=== PATIENT | male | born 1965 | race Caucasian/White ===

== ENCOUNTER → 2020-08-22 12:10 | Outpatient (CLI) | payer OTHER, SELFPAY ==
[2020-08-22 13:50] LABS: COVID19 -Nasal RAPID Negative (Negative)
== END ==
PROVIDERS: Visit Provider Physician Assistant
DX: Z11.59 Encounter for screening for other viral diseases (principal)
CPT/HCPCS: 87635

== ENCOUNTER 2020-08-25 06:11 | Inpatient (IN) | payer OTHER, SELFPAY ==
[2020-08-18 09:41] VITALS: BMI 38.3
[2020-08-25] VITALS (26 sets, daily range): BP systolic 136–200; BP diastolic 78–140; PULSE 70–98; RESP 12–20; TEMP 36.3–36.8; O2SAT 89–98; BMI 36.1
--- NOTE | 2020-08-25 | DI.RAD.S_ITS ---
PROCEDURE: XR LUMBAR SPINE 2-3V INDICATIONS: L5-S1 TLIF TECHNIQUE: Fluoroscopic images were obtained during an operative procedure and submitted for interpretation following the completion of the procedure. COMPARISON: [facility] [place], CR, XR LUMBAR SPINE FLEXION EXTENSION, 02/09/2019, 11:50. SN[facility] Outside Film, MR, MR LUMBAR SPINE WITHOUT CONTRAST, 03/31/2019, 12:47. FINDINGS: These fluoroscopic images were performed for intraoperative localization. On these images, L5 and S1 postoperative hardware has been placed. Please correlate with intraoperative findings. IMPRESSION: Normal intraoperative examination. Dictated by: Rick Devine M.D. on 08/25/2020 at 11:06 Approved by: Rick Devine M.D. on 08/25/2020 at 11:07
--- NOTE | 2020-08-25 07:06 | PM.PREOP ---
Pre-operative Note COVID-19 COVID-19 status: Negative Result date/Date tested (Pos, Neg/Pending): 08/22/20 Interval Note History & Physical reviewed/Exam performed by Physician: Yes Changes to H&P: No
[2020-08-25] MEDS: LACTATED RINGERS 1,000 ML 42 ML IV ×3 (07:33→11:04)
[2020-08-25] MEDS: MIDAZOLAM 2 MG/2 ML VIAL IV (07:40)
[2020-08-25] MEDS: CEFAZOLIN 2 GM/100 ML FROZ.PIGGY IV ×3 (07:46→23:49)
--- NOTE | 2020-08-25 08:33 | SUR.OPER ---
Prone on spine table, head in foam head support, padded chest and pelvic supports, gel pad at knees, lower legs supported by pillows; nipples, genitalia and toes free of pressure, arms secured on foam padded arm boards at <90 degrees abduction. Tape over blanket at thigh secured to table.
[2020-08-25] MEDS: BUPIVACAINE 0.5% (PF) 4 ML, MORPHINE-PF 4 MG, BUTORPHANOL 1 MG, fentaNYL 100 MCG INJ (08:44)
[2020-08-25] MEDS: VANCOMYCIN 1,000 MG VIAL 1000 MG TOP (08:45)
[2020-08-25] MEDS: THROMBIN (RECOMBINANT) 5,000 UNIT VIAL 5000 UNIT TOP (08:45)
[2020-08-25] MEDS: SODIUM CHLORIDE 0.9% 1,000 ML, GENTAMICIN 80 MG IRR ×2 (08:45→08:46)
--- NOTE | 2020-08-25 11:34 | PM.OP.1 ---
Operative Date/Time/Diagnoses Date of procedure: 08/25/20 Time of procedure: 11:34 Pre-op diagnosis: Lumbar stenosis with radiculopathy Lumbar disc herniation Post-op diagnosis: same Procedure & Clinicians Procedure: L4-5 laminectomy and diskectomy L5-S1 laminectomy L5-S1 TLIF (posterior/posterior interbody fusion) with cage L5-S1 screws Iliac crest bone graft aspirate Use of microscope Placement of epidural catheter Same procedure as scheduled: Yes Indications: [age] year old male with intractable pain from stenosis. They had failed conservative management and requested operative intervention. Risks and benefits of surgery were discussed and appropriate consents were obtained. Surgeon: Travis Atkinson Supervisor Roller Shop: Bernice Padgett Anesthesia Type: General Operative Notes Findings: None Closure Type: primary Specimen(s): none sent Prosthetic devices, grafts, tissues, transplants, or devices: NuVasive MAS Reline screws Globus Rise cage Applied: catheter Estimated Blood Loss (mL): 100 Procedure in detail: The patient was brought to the operating room and intubated on the table. A time-out was performed. They were then rolled over to the well-padded Td table in the prone position. Preoperative antibiotics were given. The back was prepped and draped in the standard sterile fashion. Using fluoroscopy, a 4 cm longitudinal incision was made to the a marked left of the midline. We used Bovie to come down to and split the lumbodorsal fascia. Using fluoroscopy and monitoring, we then percutaneously placed Jamshidi needles down the pedicles of L5 and S1 on the left side. These were changed out to guidewires and then we tapped and then placed the NuVasive MAS Reline screw shanks. We then opened up the retractors and used Bovie to clear up the posterolateral gutter as well as medially along the lamina to the spinous processes. A bur was used to decorticate the transverse process of L5 and the sacral ala. We brought in the microscope. Using a combination of bur and Kerrison rongeurs, a laminectomy was performed from the left side. We cleared over past the midline and carefully depressed the dura until we were able to decompress the opposite side. We cleared out the neural foramen to free up the exiting L5 nerve root. This required a complete facetectomy as well as undermining the facet of L4-5 to be able to finally free this up. This completed the laminectomy at L5-S1. This was separate and distinct from the TLIF approach as we were decompressing the canal and the nerves, freeing the L5 and S1 nerves. We then began the TLIF prep. We carefully cleaned up the remainder of the foramen until we could easily retract the exiting root as well as clearing medially below the dura and expose the disc space. The disc was prepped with bipolar and then an annulotomy was performed. We performed a diskectomy using a combination of paddles, dinah, pituitaries, and curettes. We distracted the disc using a paddle and locked the retractor in an open position. We then filled the disc space with Osteocel bone graft. We then placed the globus rise cage under fluoroscopy and then filled this in with more bone graft. The distraction on the retractor was released to compress down. This completed the posterior interbody fusion portion of the TLIF at L5-S1. The wound was irrigated. We then moved the retractor up to the L4-5 level and cleared off the lamina. Again we performed the left-sided laminectomy at L4-5. We carefully depressed the dura and reach across to the opposite side to completely open up the spinal canal. We had undermined the facets to clear out the neural foramen and the L4 root. We carefully retracted the dura medially and performed an annulotomy. Part of this disc was calcified and we had to use a Kerrison rongeur to remove the posterior wall. In the end we could use the ball probe to confirm the canal and foramen were wide open. The wound was irrigated. An epidural catheter was then prepped with 4 mL of 0.5% Marcaine, 1 mg Stadol, 4 mg Duramorph, and 100 mcg of fentanyl and placed in the spinal canal by carefully depressing the dura and advancing it 6 cm cephalad under the remaining lamina without resistance. The fascia was closed. We then injected the epidural and then pulled out without any resistance and oversewed the fascia. We then went over to the right side. Using fluoroscopy, a 4 cm incision was made on the right. We used Bovie split the fascia. We then percutaneously placed Jamshidi needles down the right pedicles of L5 and S1 using fluoroscopy and neural monitoring. These were changed out over guidewires and tapped and the screws were placed. We placed our gio and locked it down. The wound was irrigated. The fascia was closed. Vancomycin powder was placed in the wounds. The superficial and skin were closed. A sterile dressing was placed. The patient was then rolled over extubated and brought to recovery room without complications. Complications: none Post-operative Condition: stable Disposition: PACU Plan for aftercare: Admit into the hospital. Anticipate 2 days. Up with physical therapy.
[2020-08-25] MEDS: fentaNYL 100 MCG/2 ML INJ IV (11:58)
[2020-08-25] MEDS: OXYCODONE/ACETAMINOPHEN 5/325 TABLET 1 TAB PO (12:20)
[2020-08-25] MEDS: LORazepam 2 MG/ML INJ 0.5 MG IV (12:27)
--- NOTE | 2020-08-25 12:48 | PC.NURSE ---
Day shift: Pt not on AC unit at this time.
[2020-08-25] MEDS: LABETALOL 20 MG/4 ML SYRINGE 10 MG IV ×2 (12:50→15:38)
[2020-08-25] MEDS: ACETAMINOPHEN 325 MG TABLET 650 MG PO (13:27)
[2020-08-25] MEDS: NICOTINE 14 PATCH 14 MG TOP (13:28)
[2020-08-25] MEDS: CELECOXIB 200 MG CAPSULE 400 MG PO (13:28)
[2020-08-25] MEDS: LACTATED RINGERS 1,000 ML 125 ML IV (13:29)
[2020-08-25] MEDS: OXYCODONE IR 5 MG TABLET 10 MG PO (13:29)
--- NOTE | 2020-08-25 15:04 | P.CONS_ITS ---
History of Present Illness Consult details Date Patient Seen: 08/25/20 Chief complaint: INPT Reason for consult: Post-op hypertension Requesting provider: Travis Atkinson Narrative: Bryson Pastor is a 55-year-old male with a past medical history significant for hypertension, SULEMAN on CPAP, probable COPD, and lumbar stenosis with radiculopathy who presented for elective L4-S1 laminectomy and L5-S1 fusion. Medicine team was consulted for postoperative hypertension. Patient has had elevated blood pressures ranging from SBP 160s to 200s and DBP 100 to 120s. His current blood pressure is 140/85. He did not receive his losartan today and will plan to give that now then restart losartan 100 mg daily tomorrow. He reports he does not always remember to take his losartan at home and the last time he took it was 2 days ago. He endorses pain of his low back that is controlled and he is comfortable. Continue to optimize pain control. He has had some postoperative pruritus and nausea with 1 episode of vomiting likely due to anesthesia. He denies headache, lightheadedness or dizziness, chest pain, shortness of breath, abdominal pain, fever, chills, dysuria, diarrhea or constipation. Continue postoperative management per primary team. Meds Home Medications and Allergies Home Medications Medication Instructions Recorded Confirmed Type albuterol sulfate 1 inh INHALATION QD-BID PRN 08/15/20 08/25/20 History fluticasone propionate [Flovent 1 puff INHALATION DAILY 08/15/20 08/25/20 History HFA] losartan 100 mg PO DAILY 08/15/20 08/25/20 History Allergies Allergy/AdvReac Type Severity Reaction Status Date / Time aspirin AdvReac Gastrointestinal Verified 08/25/20 06:37 Upset Review of Systems Review of Systems Narrative: A 10 system comprehensive review of systems was conducted with the patient and found to be negative except as above in the History of Present Illness. Exam Vital Signs (past 8 hours): - 08/25/20 11:43 08/25/20 11:52 08/25/20 11:57 Temperature 97.9 F Pulse Rate 98 H 86 88 Respiratory Rate 14 18 18 Blood Pressure 139/103 H 159/112 H 170/108 H Pulse Oximetry 89 L 92 94 08/25/20 12:02 08/25/20 12:07 08/25/20 12:18 Temperature Pulse Rate 82 87 85 Respiratory Rate 18 20 16 Blood Pressure 164/104 H 165/109 H 176/82 H Pulse Oximetry 96 97 97 08/25/20 12:23 08/25/20 12:29 08/25/20 12:37 Temperature Pulse Rate 94 H 84 84 Respiratory Rate 14 12 14 Blood Pressure 200/140 H 178/122 H 178/117 H Pulse Oximetry 98 97 93 08/25/20 12:50 08/25/20 12:52 08/25/20 13:02 Temperature Pulse Rate 81 81 70 Respiratory Rate 14 12 Blood Pressure 178/117 H 164/104 H 147/93 H Pulse Oximetry 91 95 08/25/20 14:11 Temperature Pulse Rate Respiratory Rate Blood Pressure 140/85 Pulse Oximetry Oxygen Delivery Method Nasal Cannula Oxygen Flow Rate 3 Narrative Exam Narrative: General: Middle-aged male sitting in bed and in no acute distress, well- developed, well-nourished, appropriately interactive. HEENT: Normocephalic, atraumatic. External ears without defect. Pupils equal, round, and reactive to light. Anicteric sclerae, moist conjunctivae, and no lid lag. Oropharynx free of erythema and cobble stoning with moist mucosa. Neck: Supple with full range of motion. No lymphadenopathy or thyromegaly. Cardiovascular: Regular rate and rhythm without murmurs, rubs, or gallops appreciated. Pulmonary: Clear to auscultation bilaterally without crackles, wheezes, or rhonc hi. Normal respiratory effort with no use of accessory muscles. Abdomen: Soft, bowel sounds present, nontender, nondistended. No hepatosplenomegaly or masses appreciated. Extremities: No clubbing, cyanosis, or edema. Back: Dressing in place C/D/I. Skin: Normal temperature, turgor, and texture; no rash, ulcers, or subcutaneous nodules appreciated. Neurological: Cranial nerves grossly intact. Psychiatric: Normal mood and affect. Alert and oriented to person, place, and time. Assessment & Plan Assessment & Plan narrative: Bryson Pastor is a 55-year-old male with a past medical history significant for hypertension, SULEMAN on CPAP, probable COPD, and lumbar stenosis with radiculopathy who presented for elective L4-S1 laminectomy and L5-S1 fusion. Medicine team was consulted for postoperative hypertension. Assessment: Postoperative hypertension Plan: Patient has had elevated blood pressures ranging from SBP 160s to 200s and DBP 100 to 120s. His current blood pressure is 140/85. He did not receive his losartan today and will plan to give that now then restart losartan 100 mg daily tomorrow. Ordered labetalol 10 mg every 4 hours as needed for SBP > 180 mmHg or DBP > 110 mmHg with HR > 60 bpm. If additional blood pressure control is needed could consider amlodipine 5-10 mg daily. Continue to optimize pain control. Continue CPAP for SULEMAN while napping or sleeping. Thank you for this most interesting consult.
[2020-08-25] MEDS: LOSARTAN 50 MG TABLET 100 MG PO (15:28)
[2020-08-25] MEDS: ONDANSETRON 4 MG/2 ML INJ IV (15:33)
--- NOTE | 2020-08-25 15:35 | PT-IP ANOTE ---
Received PT orders and reviewed chart. Attempted to initiate evaluation, but pt's BP has been above 180 systolic in the postoperative period. PT checked BP which was 169/114 but pt was too nauseated to participate. Communicated with RN. Will check on pt for eval on 08/26/20.
[2020-08-25] MEDS: diphenhydrAMINE 25 MG TABLET PO (16:04)
[2020-08-25] MEDS: hydrOXYzine pamoate 25 MG CAPSULE PO (17:10)
--- NOTE | 2020-08-25 17:58 | PM.CN ---
History of Present Illness Consult details Date Patient Seen: 08/25/20 Chief complaint: INPT Reason for consult: Postoperative hypertension Requesting provider: Travis Atkinson Narrative: Bryson Pastor 55-year-old Meds Home Medications and Allergies Home Medications Medication Instructions Recorded Confirmed Type albuterol sulfate 1 inh INHALATION QD-BID PRN 08/15/20 08/25/20 History fluticasone propionate [Flovent 1 puff INHALATION DAILY 08/15/20 08/25/20 History HFA] losartan 100 mg PO DAILY 08/15/20 08/25/20 History Allergies Allergy/AdvReac Type Severity Reaction Status Date / Time aspirin AdvReac Gastrointestinal Verified 08/25/20 06:37 Upset Exam Vital Signs (past 8 hours): - 08/25/20 11:43 08/25/20 11:52 08/25/20 11:57 Temperature 97.9 F Pulse Rate 98 H 86 88 Respiratory Rate 14 18 18 Blood Pressure 139/103 H 159/112 H 170/108 H Pulse Oximetry 89 L 92 94 08/25/20 12:02 08/25/20 12:07 08/25/20 12:18 Temperature Pulse Rate 82 87 85 Respiratory Rate 18 20 16 Blood Pressure 164/104 H 165/109 H 176/82 H Pulse Oximetry 96 97 97 08/25/20 12:23 08/25/20 12:29 08/25/20 12:37 Temperature Pulse Rate 94 H 84 84 Respiratory Rate 14 12 14 Blood Pressure 200/140 H 178/122 H 178/117 H Pulse Oximetry 98 97 93 08/25/20 12:50 08/25/20 12:52 08/25/20 13:02 Temperature Pulse Rate 81 81 70 Respiratory Rate 14 12 Blood Pressure 178/117 H 164/104 H 147/93 H Pulse Oximetry 91 95 08/25/20 13:18 08/25/20 13:48 08/25/20 14:11 Temperature 97.8 F Pulse Rate 74 77 Respiratory Rate 16 18 Blood Pressure 140/85 174/98 H 140/85 Pulse Oximetry 91 94 08/25/20 14:18 08/25/20 15:20 08/25/20 15:28 Temperature 97.4 F L 97.6 F Pulse Rate 73 80 81 Respiratory Rate 18 18 Blood Pressure 137/89 140/97 H 140/97 H Pulse Oximetry 94 98 08/25/20 15:38 08/25/20 16:16 08/25/20 16:17 Temperature Pulse Rate 81 73 73 Respiratory Rate Blood Pressure 169/114 H 163/107 H 163/107 H Pulse Oximetry 96 08/25/20 16:20 Temperature 98.2 F Pulse Rate 72 Respiratory Rate 18 Blood Pressure 143/97 H Pulse Oximetry 93 Oxygen Delivery Method Nasal Cannula Oxygen Flow Rate 2
--- NOTE | 2020-08-25 19:20 | PC.NURSE ---
pt DC'd nicotine patch as he thought it was causing some of his side effects around 1800 and states improvement since.
[2020-08-25] MEDS: SENNOSIDES 8.6 MG TABLET 17.2 MG PO (20:13)
[2020-08-25] MEDS: OXYCODONE IR 5 MG TABLET PO (20:13)
[2020-08-25] MEDS: CELECOXIB 200 MG CAPSULE PO (20:13)
[2020-08-25] MEDS: DOCUSATE 100 MG CAPSULE PO (20:13)
[2020-08-25] MEDS: GABAPENTIN 300 MG CAPSULE PO (20:13)
[2020-08-26] VITALS (9 sets, daily range): BP systolic 134–190; BP diastolic 80–132; PULSE 62–95; RESP 12–19; TEMP 36.4–37.2; O2SAT 92–99
[2020-08-26] MEDS: LACTATED RINGERS 1,000 ML 75 ML IV (02:05)
[2020-08-26] MEDS: OXYCODONE IR 5 MG TABLET PO ×3 (05:04→23:55)
[2020-08-26 05:15] LABS: Hematocrit 40.6 % (41-53); Hemoglobin 13.5 g/dL (13.5-17.5)
[2020-08-26 05:21] LABS: Alanine Aminotransferase 31 IU/L (<50); Albumin 3.7 g/dL (3.5-5.0); Albumin Globulin Ratio 1.1 (1.0-2.8); Alkaline Phosphatase 76 U/L (38-126); Aspartate Aminotransferase 67 IU/L (17-59); BUN Creatinine Ratio 18.5 (6-22); Bilirubin Total 0.5 mg/dL (0.2-1.3); Blood Urea Nitrogen 15 mg/dL (9-20); Carbon Dioxide 31 mmol/L (22-32); Chloride 107 mmol/L (98-107); Estimated Glomerular Filt Rate > 60.0 mL/min (>60); Globulin 3.4 g/dL (1.7-4.1); Glucose 118 mg/dL (70-100); HEMOLYSIS < 15 (0-50); Magnesium 2.1 mg/dL (1.6-2.3); Potassium 4.3 mmol/L (3.4-5.1); Sodium 139 mmol/L (137-145); Total Protein 7.1 g/dL (6.3-8.2)
--- NOTE | 2020-08-26 07:42 | PM.PNPO.1 ---
Subjective Subjective Date Patient Seen: 08/26/20 Time Patient Seen: 07:43 Interval history: He is doing well. Pain is about 3/10. He is very happy that his left leg feeling is normal again. Exam Vital Signs (past 8 hours): - 08/26/20 05:10 Temperature 98.4 F Pulse Rate 90 Respiratory Rate 14 Blood Pressure 155/84 H Pulse Oximetry 92 Oxygen Delivery Method Room Air Oxygen Flow Rate 0 Const Orientation: alert and oriented x3 Back/Spine/Pelvis Other: CDI. 5/5 motor both lower extremities Objective Labs Result Diagrams: 08/26/20 04:46 08/26/20 04:46 Labs: Laboratory Results - last 24 hr 08/26/20 08/26/20 04:46 04:46 Hgb 13.5 Hct 40.6 L Sodium 139 Potassium 4.3 Chloride 107 Carbon Dioxide 31 BUN 15 Creatinine 0.81 Estimated GFR > 60.0 BUN/Creatinine Ratio 18.5 Glucose 118 H Calcium 9.0 Magnesium 2.1 Total Bilirubin 0.5 AST 67 H ALT 31 Alkaline Phosphatase 76 Total Protein 7.1 Albumin 3.7 Globulin 3.4 Albumin/Globulin Ratio 1.1 Assessment & Plan Post-op Postoperative Procedures: Procedures Operation Date: 08/25/20 07:45 Actual Procedures Side Surgeon p L4-S1 laminectomy, L5S1 instrumentated fusion w. bone graft Travis Atkinson MD He is doing great. Mobilized with physical therapy. Anticipate discharge home tomorrow.
[2020-08-26] MEDS: OXYCODONE IR 5 MG TABLET 10 MG PO ×2 (09:12→13:26)
[2020-08-26] MEDS: LOSARTAN 50 MG TABLET 100 MG PO (09:41)
[2020-08-26] MEDS: DOCUSATE 100 MG CAPSULE PO ×2 (09:49→20:53)
[2020-08-26] MEDS: CELECOXIB 200 MG CAPSULE PO ×2 (09:49→20:52)
--- NOTE | 2020-08-26 10:01 | PT.IIE ---
Current Diagnoses Spinal stenosis, lumbar region with neurogenic claudication (08/25/20) Strain of muscle, fascia and tendon of lower back, subsequent encounter (08/25/20) Surgery Performed Operation Date: 08/25/20 07:45 Actual Procedures p L4-S1 laminectomy, L5S1 instrumentated fusion w. bone graft - Travis Atkinson MD Surgical History (Last Reviewed 08/25/20 @ 15:43 by Reina Rodriguez DO) History of nasal surgery History of tonsillectomy and adenoidectomy History of vasectomy Hx of arthroscopy of shoulder Hx of hand surgery Hx of tonsillectomy Medical History (Last Reviewed 08/25/20 @ 15:43 by Reina Rodriguez DO) Anxiety Depression Headache, migraine Hemoptysis (~2014) History of ETOH abuse History of substance abuse HTN (hypertension) Panic attacks Psychosis PTSD (post-traumatic stress disorder) Sleep apnea Physical Therapy Inpatient Evaluation/Re-Eval M1 PT/OT-IP Prior Functional Status Start: 08/25/20 14:06 Freq: NEEDED Status: Active Protocol: Document 08/26/20 10:01 AB (Rec: 08/26/20 12:40 AB [id number]) Medical Review Prior Functional Status Medical History Reviewed Yes Communication able to make needs known Mobility and Gait pt stated that he is independent with all mobilities and ambulation without AD Social History Household Members none Living Arrangements House Number of Floors (Floors) Two Floors Number of Stairs To Enter/Railing? stays on main level of the house has 2 platform step to enter the house Home Environment Walk in Shower Home Equipment Straight Cane,Raised Toilet Seat w/Armrests Employment Status Retired Additional Social History Comment has an adjustable bed has access to a FWW M2 PT-IP Current Condition Start: 08/25/20 14:06 Freq: NEEDED Status: Active Protocol: Document 08/26/20 10:01 AB (Rec: 08/26/20 12:40 AB [id number]) Physical Therapy Current Condition Current Condition Evaluation Date 08/26/20 Treatment Diagnosis s/p L5-S1 TLIF; l4-5 lami; difficulty in walking Onset Date 08/25/20 Precautions Lumbar Precautions Log Roll,No Twisting,Limit Bending,Lifting Restriction of 10 lbs,Gait Belt above Incisional Area M3 PT-IP Subjective Start: 08/25/20 14:06 Freq: NEEDED Status: Active Protocol: Document 08/26/20 10:01 AB (Rec: 08/26/20 12:40 AB [id number]) Subjective Physical Therapy Visit Type Type Initial Evaluation Visit Start Time 10:01 Visit Stop Time 10:37 Total Visit Minutes 36 Number of EAR NOSE THROAT PHYSICIAN Visits 0 Physical Therapy Visit Comments Patient Comments pt is agreeable to do PT Therapy Pain Assessment Pain When Pain Assessed At Rest Pain Present Pain Present Pain Reported Location low back Scale Used pain scale not stated Pain Management Techniques Distraction,Modification of Treatment,Re-positioning, Timing of Activity with Medications M4 PT-IP Mobility and Gait Start: 08/25/20 14:06 Freq: NEEDED Status: Active Protocol: Document 08/26/20 10:01 AB (Rec: 08/26/20 12:40 AB [id number]) PT-Bed Mobility Assessment Rolling Type of Rolling Log Rolling Level of Assist Standby Assistance Supine to Sit Supine to Sit Standby Assistance Sit to Supine Sit to Supine Standby Assistance PT-Transfer Assessment Sit to and From Stand Sit to and from Stand Contact Guard Assistance, Minimal Assistance,1 Person Assistance,Use of Upper Extremities Equipment Transfer Assistive Device Gait Belt,Front Wheeled Walker Orthotic/Prosthetic Devices or Brace: No Transfers Transfer Destination Bed,Chair Transfer Technique ambulated using FWW Transfer Ability Level of Assist Contact Guard Assistance,1 Person Assistance,Use of Upper Extremities Comments Mobility Comments pt with OT. completed sit to stand from chair min A. pt instructed to sit back down. educated on sit<>stand techniques and completed sit < >stand again CGA and cues. pt repeated 3 reps. pt can be impulsive and cued for safety. pt ambulated to the toilet using FWW CGA. slight L knee increase flexion noted and cued for steadiness. pt ambulated out of the toilet towars the bed using fWW SBA to CGA. completed supine <> sit log roll SBA and cues. completed 2 sets and cues as pt is impulsive and need reminders for back precautions . pt ambulated back towards the chair using FWW SBA to CGA . positioned on chair. call light and table placed within reach. Gait Assessment Gait Gait Assistance Required: Standby Assistance,Contact Guard Assist,1 Person Assist Distance (Feet) 20 Able to Maintain Weight Bearing Status Yes During Gait Assistive Devices Assistive Device Gait Belt,Front Wheeled Walker Orthotic/Prosthetic Devices or Brace: No Gait Deviations General Gait Pattern Antalgic,Decreased Stride Length,Decreased Feet Clearance,Step-to Gait Factors Limiting Gait Function Factors Limiting Gait Function Decreased Activity Tolerance, Decreased Strength,Difficulty Following Directions,Limited Range of Motion,Pain,Poor Balance,Poor Safety Awareness Comments Gait Comments pls refer to mobility section for details PT-Balance Assessment Sitting Balance and Reactions Static Sitting Balance Ability Good Dynamic Sitting Balance Ability Good Standing Balance and Reactions Static Standing Balance Ability Fair Dynamic Standing Balance Ability Fair Device Used FWW M5 PT-IP Objective Assessments Start: 08/25/20 14:06 Freq: NEEDED Status: Active Protocol: Document 08/26/20 10:01 AB (Rec: 08/26/20 12:40 AB [id number]) Orientation Orientation/Cognition Level of Alertness Alert Orientation Name,Place,Situation Language Function Ability No Deficits Noted Safety Awareness Decreased Safety Awareness Memory Description Short Term Impaired Gross Range of Motion Lower Extremity ROM Assessment Within Functional Limits Strength Comments Strength Comments RLE: 4/5 LLE: 4-/5 Coordination Assessment Gross Coordination Gross Coordination WNL Sensation Assessment Sensation Gross Sensation WNL Muscle Tone Muscle Tone WNL Yes M6 PT-IP Treatment Start: 08/25/20 14:06 Freq: NEEDED Status: Active Protocol: Document 08/26/20 10:01 AB (Rec: 08/26/20 12:40 AB [id number]) Physical Therapy Treatment Education Education Provided Precautions,Safety M7 PT-IP Assessment and Plan Start: 08/25/20 14:06 Freq: NEEDED Status: Active Protocol: Document 08/26/20 10:01 AB (Rec: 08/26/20 12:40 AB [id number]) PT Summary Assessment and Plan Potential Rehabilitation Potential Good Status of Condition at Evaluation Stable Summary Impairments Pain,ROM,Strength,Balance, Coordination,Sensation,Tone, Cognition,Bed Mobility, Transfers,Gait,Activity Tolerance Assessment Summary pt requiring SBA to CGA with mobility and will likely progress during hospital stay. pt plans to go home but will not have assistance at home. will continue to assess progress for safe d/c plan. Goals Bed Mobility Goal Independent Transfer Goal Independent,Front Wheeled Walker Gait Goal Independent,Front Wheel Walker Gait Distance 200 Other Goals improve ambulation using SPC 200 ft SBA up/down 2 platform steps using FWW SBA Days to Meet Goals 5 Frequency of Treatment Frequency Of Treatment Twice a Day Treatment Plan Physical Therapy Treatment Plan Bed Mobility Training,Transfer Training,Gait Training, Therapeutic Exercise,Balance Retraining,Post Op Education, Discharge Planning,Hot or Cold Pack,Neuromuscular Re-ed, Coordination Retraining,Manual Therapy Other Recommendations and Next Treatment log roll bed mobility, Focus ambulation, stair climbing Recommendations To Nursing Amount of Assist Needed 1 Person Assist Discharge Recommendations PT Discharge Recommendations Home with Assistance Transportation Needs at Discharge Private Vehicle
--- NOTE | 2020-08-26 10:12 | OT.IP.EVAL ---
Current Diagnoses Spinal stenosis, lumbar region with neurogenic claudication (08/25/20) Strain of muscle, fascia and tendon of lower back, subsequent encounter (08/25/20) Surgery Performed Operation Date: 08/25/20 07:45 Actual Procedures p L4-S1 laminectomy, L5S1 instrumentated fusion w. bone graft - Travis Atkinson MD Past Medical History (Last Reviewed 08/25/20 @ 15:43 by Reina Rodriguez DO) Anxiety Depression Headache, migraine Hemoptysis (~2014) History of ETOH abuse History of substance abuse HTN (hypertension) Panic attacks Psychosis PTSD (post-traumatic stress disorder) Sleep apnea Surgical History (Last Reviewed 08/25/20 @ 15:43 by Reina Rodriguez DO) History of nasal surgery History of tonsillectomy and adenoidectomy History of vasectomy Hx of arthroscopy of shoulder Hx of hand surgery Hx of tonsillectomy Occupational Therapy Inpatient Evaluation/Re-Eval M1 PT/OT-IP Prior Functional Status Start: 08/25/20 14:06 Freq: NEEDED Status: Active Protocol: Document 08/26/20 14:26 CGR (Rec: 08/26/20 14:44 CGR [id number]) Medical Review Prior Functional Status Medical History Reviewed Yes Communication able to make needs known Mobility and Gait pt stated that he is independent with all mobilities and ambulation without AD Activities of Daily Living and IADL's Pt was IND in all ADLs prior to admit. Social History Household Members none Living Arrangements House Number of Floors (Floors) Two Floors Number of Stairs To Enter/Railing? stays on main level of the house has 2 platform step to enter the house Home Environment Standard Height Toilet,Walk in Shower Home Equipment Straight Cane,Raised Toilet Seat Without Armrests,Legal Research Analyst Employment Status Retired Additional Social History Comment has an adjustable bed has access to a FWW M2 OT-IP Current Condition Start: 08/26/20 14:26 Freq: Status: Active Protocol: Document 08/26/20 14:26 CGR (Rec: 08/26/20 14:44 CGR [id number]) Occupational Therapy Current Condition Current Condition Evaluation Date 08/26/20 Treatment Diagnosis L4-S1 with bone graft Diagnosis Onset Date 08/25/20 Post Operative Precautions Lumbar Precautions Log Roll,No Twisting,Limit Bending,Lifting Restriction of 10 lbs,Gait Belt above Incisional Area M3 OT- IP Subjective and Pain Start: 08/26/20 14:26 Freq: Status: Active Protocol: Document 08/26/20 14:26 CGR (Rec: 08/26/20 14:44 CGR [id number]) OT- Subjective Occupational Therapy Visit Type Type Initial Evaluation Visit Start Time 09:10 Visit Stop Time 09:32 Total Visit Minutes 40 Notes 2 part session, first 0910- 0932, second 1267-2517 for a total of 40 minutes. P.T. entered room at end of second session. OT Pain Assessment Pain When Pain Assessed At Rest Pain Present Pain Present Pain Reported Location low back Intensity 4 Scale Used Numeric (0 - 10) Management Techniques Distraction,Modification of Treatment,Re-positioning, Timing of Activity with Medications M4 OT- IP ADL's Start: 08/26/20 14:26 Freq: Status: Active Protocol: Document 08/26/20 14:26 CGR (Rec: 08/26/20 14:44 CGR [id number]) OT [id number]-Byowtzo Comments OT Self-Feeding Comments Not meal time but pt took pills without difficulty with water at start of session. OT ADL-Grooming Comments OT Grooming Comments Not performed OT ADL-Oral Care Comments Oral Care Comments Not performed OT ADL-Dressing General Eval Upper Body Dressing Ability Standby Assistance Lower Body Dressing Ability Standby Assistance Areas Needing Assistance Socks Comments OT Dressing Comments seated EOB, pt was able to bring foot to knee OT ADL-Toileting General Evaluation Toileting Ability Standby Assistance Comments OT Toileting Comments simulated ability d/t schultz present OT ADL-Bathing Comments OT Bathing Comments not performed M5 OT- IP IADL's Start: 08/26/20 14:26 Freq: Status: Active Protocol: Document 08/26/20 14:26 CGR (Rec: 08/26/20 14:44 CGR [id number]) OT-Instrumental Activities of Daily Living Deficits IADL Deficits Identified No Deficits Home Safety Awareness Awareness of Need for Assistance at Home Good Awareness Ability to Problem Solve Emergency Able to Problem Solve Situations Medication Management Medication Management No Deficits Identified Money Management Money Management No Deficits Identified Meal Preparation Meal Preparation No Deficits Identified Medical Insurance Claims Specialist Medical Insurance Claims Specialist No Deficits Identified Driving Driving Comments Pt does not drive at baseline. Pt's daughter drives pt as needed. M6 OT- IP Functional Cognition Start: 08/26/20 14:26 Freq: Status: Active Protocol: Document 08/26/20 14:26 CGR (Rec: 08/26/20 14:44 CGR [id number]) Cognitive Factors Limiting Selfcare Function Cognitive Ability Level of Alertness Alert Patient Orientation Name,Age,Birthday,Month,Date, Year,Day of Week,Place, Situation Attention Span Ability Capable of Focused Attention, Capable of Sustained Attention Ability to Follow Commands Able to Follow Multi-Step Commands Memory Description No Deficits Noted Safety Awareness No Deficits Noted Problem Solving Ability No deficits Noted OT- Vision and Hearing OT- Hearing Assessment OT- Hearing Assessment WFL OT- Vision Assessment Visual Acuity WFL,Glasses For Reading Visual Attentiveness WFL Occular Pursuits WFL Visual Convergence WFL M7 OT- IP Mobility and Balance Start: 08/26/20 14:26 Freq: Status: Active Protocol: Document 08/26/20 14:26 CGR (Rec: 08/26/20 14:44 CGR [id number]) OT- Bed Mobility Assessment Rolling Type of Rolling Roll to Right Level of Assistance Minimal Assistance Supine to Sit Supine to Sit Assist Standby Assistance Scooting Scooting to Edge of Bed Standby Assistance OT-Transfer Assessment Sit to and From Stand Sit to and from Stand Minimal Assistance Transfers Transfer Ability Minimal Assistance Technique Transfer Destination Bed,Chair,Toilet Transfer Technique Stand Step Pivot Devices Transfer Assistive Devices Gait Belt,Front Wheeled Walker Comments Mobility Comments Pt practiced sit to stand multiple times for safe transfers. OT- Gait Assessment Gait Gait Assistance Required: Minimum Assistance Assistive Devices Assistive Device Gait Belt,Front Wheeled Walker OT- Balance Assessment Sitting Balance and Reactions Static Sitting Balance Ability Normal Dynamic Sitting Balance Ability Good M8 OT- IP Objective Assessments Start: 08/26/20 14:26 Freq: Status: Active Protocol: Document 08/26/20 14:26 CGR (Rec: 08/26/20 14:44 CGR [id number]) OT Gross Range of Motion Upper Extremity Range of Motion Assessment Within Functional Limits OT Strength Upper Extremity Strength Assessment Within Functional Limits Comments Strength Comments grossly 4/5 OT- Coordination Assessment Upper Extremity Finger to Nose Test Within Functional Limits Finger Tapping Test Within Functional Limits OT-Muscle Tone Assessment Muscle Tone WNL Yes OT Sensation Assessment Edema Edema Absent M9 OT- IP Assessment and Plan Start: 08/26/20 14:26 Freq: Status: Active Protocol: Document 08/26/20 14:26 CGR (Rec: 08/26/20 14:44 CGR [id number]) OT Summary Assessment and Plan Potential Rehabilitation Potential Good Analytic Complexity at Evaluation Low Summary OT Impairments Pain,Balance,Functional Mobility,Dressing,Toileting, Bathing,Toilet Transfers, Shower Transfers,Activity Tolerance Progress Towards Goals Progressing Toward Goals Assessment Summary Pt presents as a low complexity evaluation s/p admit for L4-S1lami. Pt is progressing well and is likely to benefit from continued Ot services prior to discharge home. Goals Grooming Goal Independent Dressing Goal Independent Toileting Goal Independent Bathing Goal Independent Toilet Transfer Goal Independent Shower Transfer Goal Independent Days to Meet Goals 2 Frequency of Treatment Frequency Of Treatment Once a Day Treatment Plan OT Treatment Plan ADL Training,Functional Mobility,Patient/Family Education,Discharge Planning Other Treatment Recommendations and Next shower and LB dressing Treatment Focus training if needed Discharge Recommendations OT Discharge Recommendations Home Home Equipment Needs FWW, shower chair. Transportation Needs at Discharge Private Vehicle
[2020-08-26] MEDS: FLUTICASONE 220MCG HFA 120 PUFF INH (13:25)
--- NOTE | 2020-08-26 13:49 | PT.IPTN ---
Current Diagnoses Spinal stenosis, lumbar region with neurogenic claudication (08/25/20) Strain of muscle, fascia and tendon of lower back, subsequent encounter (08/25/20) Surgery Performed Operation Date: 08/25/20 07:45 Actual Procedures p L4-S1 laminectomy, L5S1 instrumentated fusion w. bone graft - Travis Atkinson MD Physical Therapy Treatment Note M2 PT-IP Current Condition Start: 08/25/20 14:06 Freq: NEEDED Status: Active Protocol: Document 08/26/20 10:01 AB (Rec: 08/26/20 12:40 AB [id number]) Physical Therapy Current Condition Current Condition Evaluation Date 08/26/20 Treatment Diagnosis s/p L5-S1 TLIF; l4-5 lami; difficulty in walking Onset Date 08/25/20 Precautions Lumbar Precautions Log Roll,No Twisting,Limit Bending,Lifting Restriction of 10 lbs,Gait Belt above Incisional Area M3 PT-IP Subjective Start: 08/25/20 14:06 Freq: NEEDED Status: Active Protocol: Document 08/26/20 13:49 AB (Rec: 08/26/20 15:09 AB [id number]) Subjective Physical Therapy Visit Type Type Treatment Note Visit Start Time 13:49 Visit Stop Time 14:39 Total Visit Minutes 50 Number of SUGAR BOILER Visits 0 Physical Therapy Visit Comments Patient Comments pt is agreeable to do PT Therapy Pain Assessment Pain When Pain Assessed At Rest Pain Present Pain Present Pain Reported Location low back Intensity 3 Scale Used Numeric (0 - 10) Pain Management Techniques Timing of Activity with Medications M4 PT-IP Mobility and Gait Start: 08/25/20 14:06 Freq: NEEDED Status: Active Protocol: Document 08/26/20 13:49 AB (Rec: 08/26/20 15:09 AB [id number]) PT-Bed Mobility Assessment Rolling Type of Rolling Log Rolling Level of Assist Standby Assistance Supine to Sit Supine to Sit Standby Assistance Sit to Supine Sit to Supine Standby Assistance Scooting Scooting to Edge of Bed Standby Assistance PT-Transfer Assessment Sit to and From Stand Sit to and from Stand Standby Assistance,Contact Guard Assistance,1 Person Assistance,Use of Upper Extremities Equipment Transfer Assistive Device Gait Belt,Front Wheeled Walker Orthotic/Prosthetic Devices or Brace: No Transfers Transfer Destination Bed,Chair Transfer Technique ambulated using FWW Transfer Ability Level of Assist Standby Assistance,Contact Guard Assistance,1 Person Assistance,Use of Upper Extremities Comments Mobility Comments reviewed back precautions and pt was able to recall. completed sit <>stand x 4 reps with cues. pt is impulsive and requires cues for techniques and safety. ambulated towards the bed. completed supine<>sit x 3 sets log roll SBA and cues. pt continues to be impulsive and requires cues to slow down to maintain back precautions. ambulated in the hallway ~ 100 ft using FWW SBA to occasional CGA for safety. continues to have increase L knee flexion during late stance. educated pt on how to do stairs using FWW and completed up/down platform step using FWW CGA to min A. pt completed 3 sets. pt ambulated back to his room using FWW SBA and requested to stay up on chair. positioned on chair. call light and table placed within reach. Gait Assessment Gait Gait Assistance Required: Standby Assistance,Contact Guard Assist,1 Person Assist Distance (Feet) 100 Able to Maintain Weight Bearing Status Yes During Gait Assistive Devices Assistive Device Gait Belt,Front Wheeled Walker Orthotic/Prosthetic Devices or Brace: No Gait Deviations General Gait Pattern Antalgic,Decreased Stride Length,Decreased Feet Clearance Factors Limiting Gait Function Factors Limiting Gait Function Decreased Activity Tolerance, Decreased Strength,Limited Range of Motion,Pain,Poor Balance,Poor Safety Awareness Comments Gait Comments pls refer to mobility section for details Stair Climbing Assessment Evaluation Level of Assist On Stairs Contact Guard Assistance, Minimal Assistance,1 Person Assistance Devices Stair Climbing Assistive Devices Front Wheel Walker Technique/Endurance Stair Climbing Direction Ascend and Descend Stair Climbing Technique Step to Step Number of Steps Climbed 1 Stair Climbing Set # Repetitions (reps) 3 Comments Stair Climbing Comments completed up/down platform step using FWW requiring CGA for ascending but required min A for descending steps. cues given for techniques and safety. M5 PT-IP Objective Assessments Start: 08/25/20 14:06 Freq: NEEDED Status: Active Protocol: Document 08/26/20 10:01 AB (Rec: 08/26/20 12:40 AB [id number]) Orientation Orientation/Cognition Level of Alertness Alert Orientation Name,Place,Situation Language Function Ability No Deficits Noted Safety Awareness Decreased Safety Awareness Memory Description Short Term Impaired Gross Range of Motion Lower Extremity ROM Assessment Within Functional Limits Strength Comments Strength Comments RLE: 4/5 LLE: 4-/5 Coordination Assessment Gross Coordination Gross Coordination WNL Sensation Assessment Sensation Gross Sensation WNL Muscle Tone Muscle Tone WNL Yes M6 PT-IP Treatment Start: 08/25/20 14:06 Freq: NEEDED Status: Active Protocol: Document 08/26/20 13:49 AB (Rec: 08/26/20 15:09 AB [id number]) Physical Therapy Treatment Education Education Provided Precautions,Weight Bearing Status,Post-Op Packet,Safety M7 PT-IP Assessment and Plan Start: 08/25/20 14:06 Freq: NEEDED Status: Active Protocol: Document 08/26/20 13:49 AB (Rec: 08/26/20 15:09 AB [id number]) PT Summary Assessment and Plan Potential Rehabilitation Potential Good Summary Impairments Pain,ROM,Strength,Balance, Coordination,Sensation,Tone, Cognition,Bed Mobility, Transfers,Gait,Activity Tolerance Progress Towards Goals Progressing Toward Goals Assessment Summary Pt requiring SBA with mobility using FWW, required CGA to min A up/down step. pt will likely progress during hospital stay. pt plans to go home but will not have consistent assistance at home but stated that his daughter may assist and also a neighbor can assist him if needed. will continue to assess progress. Goals Bed Mobility Goal Independent Transfer Goal Independent,Front Wheeled Walker Gait Goal Independent,Front Wheel Walker Gait Distance 200 Other Goals improve ambulation using SPC 200 ft SBA up/down 2 platform steps using FWW SBA Days to Meet Goals 5 Frequency of Treatment Frequency Of Treatment Twice a Day Treatment Plan Physical Therapy Treatment Plan Bed Mobility Training,Transfer Training,Gait Training, Therapeutic Exercise,Balance Retraining,Post Op Education, Discharge Planning,Hot or Cold Pack,Neuromuscular Re-ed, Coordination Retraining,Manual Therapy Other Recommendations and Next Treatment log roll bed mobility, Focus ambulation, stair climbing Recommendations To Nursing Amount of Assist Needed 1 Person Assist Discharge Recommendations PT Discharge Recommendations Home with Assistance Transportation Needs at Discharge Private Vehicle
--- NOTE | 2020-08-26 14:38 | CM.DANOTE ---
Addendum entered by Rena Blue LPN 08/26/20 14:57: PCP: Dr. Juan Shah: [facility] Addendum entered by Rena Blue LPN 08/26/20 14:52: Met with pt as planned. Introduced self and role. Pt says he anticipates a d/c tomorrow and plans for his daughter oRsa, who works in [place], to pick him up when she gets off work at 1200. He does live alone but has a friend who will be staying for a bit as well as a house-mate who he can call on if need be for help. He expresses no concerns re his d/c to home plan for tomorrow. Original Note: Discharge Planning/Care Management DCP: assessment: case received, EMR reviewed. Discussed in Team Rounds. Pt is a 55 year old male who admitted yesterday for a planned spinal surgery. Payer: L&I Admission status: INPT. Consulting: Hospitalist team: for elevated BP Surgeon: Dr. Atkinson. PT and OT are seeing pt. Dr. Atkinson anticipates pt will be ready for d/c home tomorrow. Will check in with pt now. He does live alone. Unsure of his support system post d/c. CM Discharge Assessment Start: 08/26/20 14:37 Freq: Status: Active Protocol: Document 08/26/20 14:37 ITV (Rec: 08/26/20 14:38 ITV [id number]) Discharge Planning Assessment Advance Directives? No History Provided By Medical Record Prior Living Arrangements House Household Members none Independent with ADL's Yes Is patient alert and oriented? Yes Review Status In Process Pre-Anesthesia Assessment Start: 08/15/20 12:53 Freq: Status: Active Protocol: Document 08/18/20 09:41 CAB (Rec: 08/15/20 13:08 CAB [id number]) Pre-Anesthesia Assessment Patient Information Reviewed Via Phone Assessment Assessment Completed With Patient,Other H&P Completed Within 30 Days Yes Diagnostic Results BMP/CMP,CBC,EKG Comment Outside labs/EKG scanned, COVID screen @ 08/22/20 Primary Care Provider Roney Seen Specialist in Last 12 Months Yes Specialist Seen Orthopedist Primary Language Nepali Payroll Analyst Required No Height 182.88 cm Weight 128.367 kg Body Mass Index (BMI) 38.3 Hearing Ability Normal Visual Assist None Dentition Type Teeth, Natural Present Hx Anesthesia Reactions No Hx Family Anesthesia Reaction No Hx Malignant Hyperthermia No Hx Blood Transfusions No Anesthesia Review Requested No alcohol intake former Alcohol Intake Frequency Other: Hx of ETOH abuse Smoking Status Former smoker how long ago did patient quit smoking Quit approx 2 months ago Substance Use Type former substance user Pain Present Pain Reported Musculoskeletal Symptoms Abnormal Gait,Back Pain,Joint Pain,Numbness,Radiating Pain into Limb,Tingling History of Falling (Recent or History of Yes ) Patient is completely paralyzed or No completely immobile Mental Status Oriented to own ability Is patient on oxygen? No Does patient have HASSAN/SOB No Hx Sleep Apnea Yes CPAP/BIPAP use prescribed and used routinely Will Bring CPAP/BIPAP DOS Yes Currently Taking a Beta [place] No Can You Climb a Flight of Stairs Without No SOB Hx Chest Pain No Hx SOB No Hx Syncope or Dizziness No Anti-Coagulant Therapy No Has a Cardio Tech No Cardiac Testing No Hx Pacemaker/ICD No Pacemaker Rep Required? 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 Marital Status Lives With none Prior Living Arrangements House Number of Floors (Floors) Two Floors Does the Patient Have Assistance After No Surgery Patient Discharge Plan Description Return Home Comment Pt not advised on length of stay per surgeon Feels Safe in Current Environment Yes Been Physically Hurt or Threatened By a No Person in Current Environment Do you have thoughts of harming yourself None or others? Are you currently considering suicide? No Do you have a plan to hurt yourself or No Plan others? Do You Have Any Spiritual Beliefs That No May Affect Your HC Choices? Do You Have Any Cultural Practices That No May Affect Your HC Choices? Comment Roman Catholic Who Can We Speak to About Patient's Care Family, friends Identifying Code for Release of Patient Declines to issue Information Health Care Proxy/Next of Kin Rosa (Daughter) Health Care Proxy Emergency Contact Name Rosa (Daughter) Emergency Contact PAC Instructions Bring CPAP/BIPAP,Durable medical equipment,Medications to take/avoid,Nasal antibiotic ,No ETOH/petroleum product on skin DOS,NPO,Pre-surgical wash ,Sturdy shoes/comfortable clothes,Do not bring valuables and remove jewelry
[2020-08-26] MEDS: hydrOXYzine pamoate 25 MG CAPSULE PO ×2 (16:09)
[2020-08-26] MEDS: ACETAMINOPHEN 325 MG TABLET 650 MG PO (16:09)
[2020-08-26] MEDS: SENNOSIDES 8.6 MG TABLET 17.2 MG PO (20:52)
[2020-08-26] MEDS: GABAPENTIN 300 MG CAPSULE PO (20:53)
[2020-08-27] MEDS: OXYCODONE IR 5 MG TABLET PO ×2 (00:20→13:39)
[2020-08-27] MEDS: hydrOXYzine pamoate 25 MG CAPSULE PO ×3 (00:20→12:37)
--- NOTE | 2020-08-27 02:29 | PC.NURSE ---
Patient has been uncooperative this shift. Patient had been sitting on side of bed and had c/o back/leg/buttock spasms. After returning from bathroom, I asked patient how were the spasms doing? He replied no it is better now. Asked him to rate his pain and he said 4/10. took prescribed percolone 5mg po from pyxsis for this pain rating. Patient takes med, and few miniutes later starts screaming that no one told him about the pain ratings, and that he was being undermedicated all along, Told patient that I was his nurse last night also and that he had been medicated by me during the shift. took about 10 minutes to talk patient down, explained he would be medicated for his now report of higher pain. Given a vistaril and another 5mg percolone. hour later screaming and walking around room again c/o pain. Told him I would look and see when he could next have pain meds. Cursed and said he could go look at the computer himself expletive, expletive.... Too soon for vistaril or percolone. Removed benadryl and tylenol for patient to tide over until next available due dose of percolone. Patient had put himself back to bed with knees bent, rolling around. I gave him ice pack. Told him what I was able to give, and time when I could next medicate with percolone, and he refused. He gets up out of bed, sits in chair, walks around room with walker, refuses icepack. Will reapproach when next timely percolone could be given.
[2020-08-27] MEDS: ACETAMINOPHEN 325 MG TABLET 650 MG PO ×2 (03:13→13:38)
[2020-08-27] MEDS: OXYCODONE IR 5 MG TABLET 10 MG PO (03:14)
[2020-08-27] MEDS: diphenhydrAMINE 25 MG TABLET PO (03:15)
[2020-08-27 03:55] VITALS: BP 153/101; PULSE 87; RESP 12; TEMP 36.7; O2SAT 88
--- NOTE | 2020-08-27 04:09 | PC.NURSE ---
Patient in pain, apologizes for outburst, very uncomfortable, tries, bed, chair, standing. Cries out from pain. Had medicated recently. Called Dr. Phipps wire preparation machine tender for Dr. Atkinson, and received dilaudid po order prn, as well as valium po prn for spasms. [facility] working on order now, I spoke with them. Will medicate as soon as orders verified.
[2020-08-27] MEDS: HYDROMORPHONE 4 MG TABLET PO ×4 (04:17→12:32)
[2020-08-27] MEDS: diazePAM 5 MG TABLET PO ×2 (04:18→13:39)
[2020-08-27 08:00] VITALS: BP 157/108; PULSE 90; RESP 22; TEMP 36.8; O2SAT 94
[2020-08-27] MEDS: FLUTICASONE 220MCG HFA 120 PUFF INH (08:05)
[2020-08-27 08:10] VITALS: PULSE 87; RESP 20; O2SAT 94
[2020-08-27 08:12] VITALS: BP 157/108; PULSE 90
[2020-08-27] MEDS: DOCUSATE 100 MG CAPSULE PO (08:12)
[2020-08-27] MEDS: LOSARTAN 50 MG TABLET 100 MG PO (08:12)
[2020-08-27] MEDS: CELECOXIB 200 MG CAPSULE PO (08:12)
--- NOTE | 2020-08-27 08:57 | PT.IPTN ---
Current Diagnoses Spinal stenosis, lumbar region with neurogenic claudication (08/25/20) Strain of muscle, fascia and tendon of lower back, subsequent encounter (08/25/20) Surgery Performed Operation Date: 08/25/20 07:45 Actual Procedures p L4-S1 laminectomy, L5S1 instrumentated fusion w. bone graft - Travis Atkinson MD Physical Therapy Treatment Note M2 PT-IP Current Condition Start: 08/25/20 14:06 Freq: NEEDED Status: Active Protocol: Document 08/26/20 10:01 AB (Rec: 08/26/20 12:40 AB [id number]) Physical Therapy Current Condition Current Condition Evaluation Date 08/26/20 Treatment Diagnosis s/p L5-S1 TLIF; l4-5 lami; difficulty in walking Onset Date 08/25/20 Precautions Lumbar Precautions Log Roll,No Twisting,Limit Bending,Lifting Restriction of 10 lbs,Gait Belt above Incisional Area M3 PT-IP Subjective Start: 08/25/20 14:06 Freq: NEEDED Status: Active Protocol: Document 08/27/20 08:57 AB (Rec: 08/27/20 11:17 AB [id number]) Subjective Physical Therapy Visit Type Type Treatment Note Visit Start Time 08:57 Visit Stop Time 09:22 Total Visit Minutes 25 Number of HARMONICA MAKER Visits 0 Physical Therapy Visit Comments Patient Comments pt is agreeable to do PT Therapy Pain Assessment Pain When Pain Assessed At Rest Pain Present Pain Present Pain Reported Location low back Intensity 7 Scale Used Numeric (0 - 10) Pain Management Techniques Apply Cold,Distraction, Modification of Treatment,Re- positioning,Timing of Activity with Medications M4 PT-IP Mobility and Gait Start: 08/25/20 14:06 Freq: NEEDED Status: Active Protocol: Document 08/27/20 08:57 AB (Rec: 08/27/20 11:17 AB [id number]) PT-Transfer Assessment Sit to and From Stand Sit to and from Stand Standby Assistance Equipment Transfer Assistive Device Gait Belt,Front Wheeled Walker Orthotic/Prosthetic Devices or Brace: No Comments Mobility Comments completed sit to stand from chair SBA and ambulated ~ 200 ft using FWW SBA to occasionally CGA for safety as pt can be impulsive. pt with frequent standing rest breaks in between walks. pt stated that he feels comfortable with his log roll bed mobility and stair climbing and does not want to do those again today. pt requested to use the toilet and ambulated to the toilet using FWW SBA. was able to maintain standing balance using FWW for support while completing toileting SBA . pt ambulated back to the chair using FWW SBA. positioned on chair. call light and table placed within reach. Gait Assessment Gait Gait Assistance Required: Standby Assistance,Contact Guard Assist Distance (Feet) 200 Able to Maintain Weight Bearing Status Yes During Gait Assistive Devices Assistive Device Gait Belt,Front Wheeled Walker Orthotic/Prosthetic Devices or Brace: No Gait Deviations General Gait Pattern Antalgic Factors Limiting Gait Function Factors Limiting Gait Function Decreased Activity Tolerance, Decreased Strength,Limited Range of Motion,Pain,Poor Balance,Poor Safety Awareness Comments Gait Comments pls refer to mobility section for details M5 PT-IP Objective Assessments Start: 08/25/20 14:06 Freq: NEEDED Status: Active Protocol: Document 08/26/20 10:01 AB (Rec: 08/26/20 12:40 AB [id number]) Orientation Orientation/Cognition Level of Alertness Alert Orientation Name,Place,Situation Language Function Ability No Deficits Noted Safety Awareness Decreased Safety Awareness Memory Description Short Term Impaired Gross Range of Motion Lower Extremity ROM Assessment Within Functional Limits Strength Comments Strength Comments RLE: 4/5 LLE: 4-/5 Coordination Assessment Gross Coordination Gross Coordination WNL Sensation Assessment Sensation Gross Sensation WNL Muscle Tone Muscle Tone WNL Yes M6 PT-IP Treatment Start: 08/25/20 14:06 Freq: NEEDED Status: Active Protocol: Document 08/27/20 08:57 AB (Rec: 08/27/20 11:17 AB [id number]) Physical Therapy Treatment Education Education Provided Precautions,Safety M7 PT-IP Assessment and Plan Start: 08/25/20 14:06 Freq: NEEDED Status: Active Protocol: Document 08/27/20 08:57 AB (Rec: 08/27/20 11:17 AB [email or web address]) PT Summary Assessment and Plan Potential Rehabilitation Potential Good Summary Impairments Pain,ROM,Strength,Balance, Coordination,Sensation,Tone, Cognition,Bed Mobility, Transfers,Gait,Activity Tolerance Progress Towards Goals Progressing Toward Goals Assessment Summary pt requiring SBA to occasional CGA with mobility. stated that his friend will stay with him for the first 2 nights to assist him. pt plans to go home later today. Goals Bed Mobility Goal Independent Transfer Goal Independent,Front Wheeled Walker Gait Goal Independent,Front Wheel Walker Gait Distance 200 Other Goals improve ambulation using SPC 200 ft SBA up/down 2 platform steps using FWW SBA Days to Meet Goals 5 Frequency of Treatment Frequency Of Treatment Twice a Day Treatment Plan Physical Therapy Treatment Plan Bed Mobility Training,Transfer Training,Gait Training, Therapeutic Exercise,Balance Retraining,Post Op Education, Discharge Planning,Hot or Cold Pack,Neuromuscular Re-ed, Coordination Retraining,Manual Therapy Other Recommendations and Next Treatment log roll bed mobility, Focus ambulation, stair climbing Recommendations To Nursing Amount of Assist Needed 1 Person Assist Discharge Recommendations PT Discharge Recommendations Home with Assistance Transportation Needs at Discharge Private Vehicle
--- NOTE | 2020-08-27 09:54 | PM.PNPO.1 ---
Subjective Subjective Date Patient Seen: 08/27/20 Time Patient Seen: 09:54 Interval history: He is doing much better today. His pain had gotten high yesterday but it is back under control. Leg feels great. Exam Vital Signs (past 8 hours): - 08/27/20 03:55 08/27/20 08:00 08/27/20 08:10 Temperature 98.0 F 98.2 F Pulse Rate 87 90 87 Respiratory Rate 12 22 20 Blood Pressure 153/101 H 157/108 H Pulse Oximetry 88 L 94 94 08/27/20 08:12 Temperature Pulse Rate 90 Respiratory Rate Blood Pressure 157/108 H Pulse Oximetry Oxygen Delivery Method Room Air Oxygen Flow Rate 0 Const Orientation: alert and oriented x3 Back/Spine/Pelvis Other: Minimal drainage. 5/5 motor both lower extremities. Objective Labs Result Diagrams: 08/26/20 04:46 08/26/20 04:46 Assessment & Plan Post-op Postoperative Procedures: Procedures Operation Date: 08/25/20 07:45 Actual Procedures Side Surgeon p L4-S1 laminectomy, L5S1 instrumentated fusion w. bone graft Travis Atkinson MD He is doing great. He is now independent with mobility. Plan to discharge home.
--- NOTE | 2020-08-27 09:55 | PM.DS.1 ---
History of Present Illness History of Present Illness Date Patient Seen: 08/27/20 Time Patient Seen: 09:56 Chief complaint: INPT Narrative: 55-year-old male with back and left leg pain. He slipped on the ice in November and has been having problems since. He has been through therapy, injections, medications. Discharge Providers Provider Date of admission: 08/25/20 06:11 Discharge Date: 08/27/20 Consults: 08/25/20 13:11 Consult to Occupational Therapy Evaluate & Treat Comment: Physician Instructions: Evaluate and treat Consult to Physical Therapy Evaluate & Treat Comment: Physician Instructions: Evaluate and Treat 08/25/20 15:57 Consult to Hospitalist Service Routine Comment: Consulting Provider: Reina Rodriguez Reason for consultation: Hypertension Has provider been notified: Yes Discharge provider: Traivs Atkinson MD Summary Hospital Course Discharge Diagnosis: Lumbar stenosis with radiculopathy Hospital Course: He is brought to the operating room on 08/25/2020 where he underwent a L4 through S1 laminectomy and L5-S1 TLIF. Postoperatively he did well. He had some issues with pain control but was under good control by date of discharge. He was mobilizing well with physical therapy. Status at Discharge Cognitive/behavioral status at discharge: oriented Functional status at discharge: uses cane/walker Overall status at discharge: patient is progressing back to baseline Exam Vital Signs (past 8 hours): - 08/27/20 03:55 08/27/20 08:00 08/27/20 08:10 Temperature 98.0 F 98.2 F Pulse Rate 87 90 87 Respiratory Rate 12 22 20 Blood Pressure 153/101 H 157/108 H Pulse Oximetry 88 L 94 94 08/27/20 08:12 Temperature Pulse Rate 90 Respiratory Rate Blood Pressure 157/108 H Pulse Oximetry Oxygen Delivery Method Room Air Oxygen Flow Rate 0 Const Orientation: alert and oriented x3 Back/Spine/Pelvis Other: Mild dry drainage. 5/5 motor both lower extremities. Objective Labs Result Diagrams: 08/26/20 04:46 08/26/20 04:46 Discharge Assessment & Plan Assessment and Plan Assessment: Status post laminectomy and fusion Plan of Treatment: Discharge home Discharge Plan Discharge Plan Patient Disposition: Home Provider Discharge Comment: Follow-up 1.5 weeks Discharge orders & Medications Prescriptions: New diazepam 5 mg Tablet 5 mg PO Q6HR PRN (Reason: Spasms) Qty: 10 RF: 0 oxycodone 5 mg Tablet 5 mg PO Q3HR PRN (Reason: Pain, Moderate (4-6)) Qty: 20 RF: 0 celecoxib [Celebrex] 200 mg Capsule 200 mg PO BID PRN (Reason: pain) Qty: 60 RF: 0 docusate sodium [DOK] 100 mg Capsule 100 mg PO BID PRN (Reason: constipation) Qty: 30 RF: 0 oxycodone 5 mg tablet 5 mg PO Q3H PRN (Reason: pain) Qty: 20 RF: 0 diazepam [Valium] 5 mg tablet 5 mg PO Q6HR Qty: 10 RF: 0 Continued Flovent HFA 220 mcg/actuation Hfa Aerosol Inhaler 1 puff INHALATION DAILY RF: 0 albuterol sulfate 90 mcg/actuation Hfa Aerosol Inhaler 1 inh INHALATION QD-BID PRN (Reason: Shortness Of Breath) RF: 0 losartan 100 mg Tablet 100 mg PO DAILY RF: 0 Discharge Health Status Multidrug resistant organism: No MDRO Diet/Activity/Treatments Diet: Diet as Tolerated Activity: Limited bending, twisting, 10 lb lifting. Catheter: 2-way Fenton, 3-way Fenton, Suprapubic, Condom catheter and Irrigant/Irrigate Skin/Wound/Dressing Care Report to your healthcare provider any signs of infection, such as:: chills, fever, night sweats, increased pain, unusual drainage and unusual redness Dressing: May shower over dressing for the 1st 5 days. On Saturday, you may remove the dressing and shower over the incision. Replace this with a clean dressing when done. Visit Report/Discharge Packet Instructions: DI for Prescription Opioid Use, DI for Transforaminal Lumbar Interbody Fusion Stand Alone Forms: Surgery Discharge
--- NOTE | 2020-08-27 11:33 | OT.IP.TRT ---
Current Diagnoses Spinal stenosis, lumbar region with neurogenic claudication (08/25/20) Strain of muscle, fascia and tendon of lower back, subsequent encounter (08/25/20) Surgery Performed Operation Date: 08/25/20 07:45 Actual Procedures p L4-S1 laminectomy, L5S1 instrumentated fusion w. bone graft - Travis Atkinson MD Occupational Therapy Treatment Note M2 OT-IP Current Condition Start: 08/26/20 14:26 Freq: Status: Active Protocol: Document 08/26/20 14:26 CGR (Rec: 08/26/20 14:44 CGR [id number]) Occupational Therapy Current Condition Current Condition Evaluation Date 08/26/20 Treatment Diagnosis L4-S1 with bone graft Diagnosis Onset Date 08/25/20 Post Operative Precautions Lumbar Precautions Log Roll,No Twisting,Limit Bending,Lifting Restriction of 10 lbs,Gait Belt above Incisional Area M3 OT- IP Subjective and Pain Start: 08/26/20 14:26 Freq: Status: Active Protocol: Document 08/27/20 12:24 CGR (Rec: 08/27/20 12:30 CGR [email or web address]) OT- Subjective Occupational Therapy Visit Type Type Progress Note Visit Start Time 11:14 Visit Stop Time 11:33 Total Visit Minutes 19 Notes Pt is dressed and ready for discharge. Per nursing, he needed help with LB dressing after his shower this morning. OT Pain Assessment Pain When Pain Assessed At Rest Pain Present Pain Present Pain Reported Location low back Intensity 7 Scale Used Numeric (0 - 10) Management Techniques Distraction,Modification of Treatment,Re-positioning M4 OT- IP ADL's Start: 08/26/20 14:26 Freq: Status: Active Protocol: Document 08/27/20 12:24 CGR (Rec: 08/27/20 12:30 CGR [id number]) OT [id number] Comments OT Self-Feeding Comments Not meal time OT ADL-Grooming Comments OT Grooming Comments Not performed OT ADL-Oral Care Comments Oral Care Comments Not performed OT ADL-Dressing General Eval Lower Body Dressing Ability Standby Assistance Areas Needing Assistance Socks,Shoes Assistive Devices Dressing Assistive Devices Long Handled Shoe Horn,Electron Beam Photo Mask Technician ,Sock Aid Comments OT Dressing Comments Pt educated on use of hip kit for LB dress. Pt states understanding of using law clerk for donning pants and underwear and demonstrates ability to don socks and shoes using equipment. OT ADL-Toileting Comments OT Toileting Comments Not performed OT ADL-Bathing Comments OT Bathing Comments Pt just completed with nursing . M5 OT- IP IADL's Start: 08/26/20 14:26 Freq: Status: Active Protocol: Document 08/26/20 14:26 CGR (Rec: 08/26/20 14:44 CGR [id number]) OT-Instrumental Activities of Daily Living Deficits IADL Deficits Identified No Deficits Home Safety Awareness Awareness of Need for Assistance at Home Good Awareness Ability to Problem Solve Emergency Able to Problem Solve Situations Medication Management Medication Management No Deficits Identified Money Management Money Management No Deficits Identified Meal Preparation Meal Preparation No Deficits Identified Vp Cardiovascular Service Line Vp Cardiovascular Service Line No Deficits Identified Driving Driving Comments Pt does not drive at baseline. Pt's daughter drives pt as needed. M6 OT- IP Functional Cognition Start: 08/26/20 14:26 Freq: Status: Active Protocol: Document 08/26/20 14:26 CGR (Rec: 08/26/20 14:44 CGR [id number]) Cognitive Factors Limiting Selfcare Function Cognitive Ability Level of Alertness Alert Patient Orientation Name,Age,Birthday,Month,Date, Year,Day of Week,Place, Situation Attention Span Ability Capable of Focused Attention, Capable of Sustained Attention Ability to Follow Commands Able to Follow Multi-Step Commands Memory Description No Deficits Noted Safety Awareness No Deficits Noted Problem Solving Ability No deficits Noted OT- Vision and Hearing OT- Hearing Assessment OT- Hearing Assessment WFL OT- Vision Assessment Visual Acuity WFL,Glasses For Reading Visual Attentiveness WFL Occular Pursuits WFL Visual Convergence WFL M7 OT- IP Mobility and Balance Start: 08/26/20 14:26 Freq: Status: Active Protocol: Document 08/27/20 12:24 CGR (Rec: 08/27/20 12:30 CGR [email or web address]) OT-Transfer Assessment Sit to and From Stand Sit to and from Stand Independent Transfers Transfer Ability Independent Technique Transfer Destination Bed,Chair Transfer Technique Stand Step Pivot Devices Transfer Assistive Devices Front Wheeled Walker Comments Mobility Comments Pt is mobilizing in the room when OT entered. OT- Balance Assessment Sitting Balance and Reactions Static Sitting Balance Ability Normal Dynamic Sitting Balance Ability Good M8 OT- IP Objective Assessments Start: 08/26/20 14:26 Freq: Status: Active Protocol: Document 08/26/20 14:26 CGR (Rec: 08/26/20 14:44 CGR [id number]) OT Gross Range of Motion Upper Extremity Range of Motion Assessment Within Functional Limits OT Strength Upper Extremity Strength Assessment Within Functional Limits Comments Strength Comments grossly 4/5 OT- Coordination Assessment Upper Extremity Finger to Nose Test Within Functional Limits Finger Tapping Test Within Functional Limits OT-Muscle Tone Assessment Muscle Tone WNL Yes OT Sensation Assessment Edema Edema Absent M9 OT- IP Assessment and Plan Start: 08/26/20 14:26 Freq: Status: Active Protocol: Document 08/27/20 12:24 CGR (Rec: 08/27/20 12:30 CGR [email or web address]) OT Summary Assessment and Plan Potential Rehabilitation Potential Good Analytic Complexity at Evaluation Low Summary OT Impairments Pain,Balance,Functional Mobility,Dressing,Toileting, Bathing,Toilet Transfers, Shower Transfers,Activity Tolerance Progress Towards Goals Progressing Toward Goals Assessment Summary Pt presents as a low complexity evaluation s/p admit for L4-S1 lami. Pt is progressing well and is ready for D/C home today. Pt voices concern for his small home and asks if he should rent at an extended stay hotel for a handicap accessible room for 30 days. This commercial loan underwriter suggested that he return home at adjust to his home environment rather than discharge to a hotel. Pt states understanding . Goals Grooming Goal Independent Dressing Goal Independent Toileting Goal Independent Bathing Goal Independent Toilet Transfer Goal Independent Shower Transfer Goal Independent Days to Meet Goals 2 Frequency of Treatment Frequency Of Treatment Once a Day Treatment Plan OT Treatment Plan ADL Training,Functional Mobility,Patient/Family Education,Discharge Planning Other Treatment Recommendations and Next shower and LB dressing Treatment Focus training if needed Discharge Recommendations OT Discharge Recommendations Home Home Equipment Needs FWW, shower chair. Transportation Needs at Discharge Private Vehicle
[2020-08-27 11:49] VITALS: BP 165/107; PULSE 92; RESP 19; TEMP 36.4; O2SAT 92
--- NOTE | 2020-08-27 14:01 | PC.NURSE ---
All discharge teaching done regarding activity, ss/ of infection, new medications, ss/ of stroke, diet. Patient verbalized understanding of all discharge teaching. Patient left facility with all belongings via wheelchair to private vehicle. Patient prescriptions were send electronically to pharmacy.
== END 2020-08-27 14:05 | disposition home or self-care (01) | DRG 304 ==
PROVIDERS: Internal Medicine; Admitting Provider Orthopaedic Surgery; Referring Provider Orthopaedic Surgery; Visit Provider Orthopaedic Surgery
PROC: 0SG30AJ Fusion of Lumbosacral Joint with Interbody Fusion Device, Posterior Approach, Anterior Column, Open Approach (ICD-10-PCS; principal; 2020-08-25 07:45)
DX: M48.061 Spinal stenosis, lumbar region without neurogenic claudication (principal); I10 Essential (primary) hypertension; T46.5X6A Underdosing of other antihypertensive drugs, initial encounter; G47.30 Sleep apnea, unspecified; F32.9 Major depressive disorder, single episode, unspecified; F41.9 Anxiety disorder, unspecified; Z91.138 Patient's unintentional underdosing of medication regimen for other reason
CPT/HCPCS: 36415; 72100; 76000; 80053; 83735; 85014; 85018; 94640; 94760; 94762; 97116; 97161; 97165; 97530; 97535; C1776; A9270; J0595; J0690; J2060; J2250; J2274; J2405; J2704; J3010

== ENCOUNTER 2020-08-29 10:38 | Observation (INO) | payer OTHER, SELFPAY ==
[2020-08-25 13:40] VITALS: BMI 36.1
[2020-08-29 13:52] VITALS: BMI 35.2
[2020-08-29] MEDS: HYDROMORPHONE 0.5 MG INJ IV ×4 (13:55→20:26)
[2020-08-29 13:57] VITALS: BP 144/94; PULSE 86; RESP 16; TEMP 36.7; O2SAT 96
--- NOTE | 2020-08-29 14:42 | PC.NURSE ---
Safe hand off from ED at [facility]. Patient arrived to unit via EMS and stretcher. Patient was able to get up from stretcher and use the walker to ambulate throughout the room and was able to take his shirt off himself. Patient states pain is 9/10. He feels like he was not sent home with enough pain medications and pain control is his main issue, but that he is getting around and ambulating at home ok. Patient also feels like he continues to have back spasms. Patient was hypertensive when he arrived to the unit and stated that he has not taken his blood pressure medication for a few days, BP 144/95, HR 84. Lung sounds are wheezing in the upper lobes. Patient has not had a bowel movement since the . Daughter called and felt like her dad needed to be in the hospital for 1-3 days and then have home healthcare. I do not feel like this is patient's need at this time.
[2020-08-29] MEDS: OXYCODONE IR 10 MG TABLET PO ×2 (15:12→18:10)
[2020-08-29 15:45] LABS: COVID19 -Nasal RAPID Negative (Negative)
[2020-08-29 15:57] VITALS: BP 155/118; PULSE 95; RESP 20; TEMP 36.8; O2SAT 98
[2020-08-29] MEDS: diazePAM 5 MG TABLET PO (15:58)
--- NOTE | 2020-08-29 16:15 | PT-IP ANOTE ---
Pt is a direct admit/readmit. No current H&P on the chart. PT will evaluate morning of 08/30.
[2020-08-29 20:06] VITALS: BP 117/71; PULSE 84; RESP 20; TEMP 36.4; O2SAT 92
[2020-08-29] MEDS: SENNOSIDES 8.6 MG TABLET 17.2 MG PO (20:26)
[2020-08-29] MEDS: CELECOXIB 200 MG CAPSULE PO (20:27)
[2020-08-29] MEDS: DOCUSATE 100 MG CAPSULE PO (20:27)
--- NOTE | 2020-08-29 20:37 | PM.HP.1 ---
History of Present Illness History of Present Illness Date Patient Seen: 08/29/20 Time Patient Seen: 20:38 Chief complaint: Pain control Narrative: 55-year-old male who had a L4 through S1 laminectomy and L5-S1 instrumented fusion on 08/25/2020. He was discharged home on postoperative day 2. At that point he had good pain control and had been doing well with PT. however, he was going through his pain medication very rapidly as his discharge prescription was only filled with 5 mg tablets instead of 10 mg tablets. He had a fall last night when his walker broke and he went down. His family had to call EMS and he was brought to the [facility] early this morning. After discussion with his family, it is felt that he needed to have better pain control and mobility. Although originally he had plan to live with family, he had actually gone back home to his 1 bedroom apartment. He had no one helping him. He was transferred from [facility] back up to of the hospital today and we have been working on pain control since. At this point his pain is under much better control but he has been requiring IV Dilaudid. He is getting around on his walker decently. Patient History Medical History Anxiety Depression Headache, migraine Hemoptysis (~2014) History of ETOH abuse History of substance abuse HTN (hypertension) Panic attacks Psychosis PTSD (post-traumatic stress disorder) Sleep apnea Surgical History History of nasal surgery History of tonsillectomy and adenoidectomy History of vasectomy Hx of arthroscopy of shoulder Hx of hand surgery Hx of tonsillectomy Family & Social History Family History Mother Heart attack Father Heart attack Stroke Social History: household members none Prior Living Arrangements House Safety & Behavioral: Feels Safe in Current Yes Environment Been Physically Hurt or No Threatened By a Person Suicidal Ideation Description None Suicide Plan Description No Plan Tobacco & Substance use: Tobacco type cigarettes Smoking Status Current every day smoker alcohol intake former Substance Use Type marijuana Meds Home Medications and Allergies Home Medications Medication Instructions Recorded Confirmed Type Flovent HFA 1 puff INHALATION DAILY 08/15/20 08/29/20 History albuterol sulfate 1 inh INHALATION QD-BID PRN 08/15/20 08/29/20 History losartan 100 mg PO DAILY 08/15/20 08/29/20 History celecoxib [Celebrex] 200 mg PO BID PRN #60 cap 08/27/20 08/29/20 Rx diazepam 5 mg PO Q6HR PRN #10 tab 08/27/20 08/29/20 Rx docusate sodium [DOK] 100 mg PO BID PRN #30 cap 08/27/20 08/29/20 Rx oxycodone 5 mg PO Q3H PRN #20 tab 08/27/20 08/29/20 Rx Allergies Allergy/AdvReac Type Severity Reaction Status Date / Time aspirin AdvReac Gastrointestinal Verified 08/25/20 06:37 Upset Review of Systems Constitutional Constitutional: Denies chills and Denies fever(s) Respiratory Respiratory: Denies cough Exam Vital Signs (past 8 hours): - 08/29/20 13:57 08/29/20 15:57 08/29/20 20:06 Temperature 98.1 F 98.3 F 97.6 F Pulse Rate 86 95 H 84 Respiratory Rate 16 20 20 Blood Pressure 144/94 H 155/118 H 117/71 Pulse Oximetry 96 98 92 Oxygen Delivery Method Room Air Oxygen Flow Rate 0 Const Orientation: alert and oriented x3 Resp Auscultation: clear to auscultation bilaterally Cardio Rate: regular rate Rhythm: regular rhythm Back/Spine/Pelvis Other: CDI. 5/5 motor both lower extremities Objective Labs Labs: Laboratory Results - last 24 hr 08/29/20 13:50 COVID-19 PCR Negative Assessment & Plan Assessment & Plan narrative: Unfortunate, due to social situation, he was not able to manage this on his own. We admitted him back to the hospital for pain control and mobility. We are going to try upping his oral medications that he does not require IV breakthrough. Mobilize with physical therapy. The plan this set him up with home health so that he will have assistance once he does go home. Plan to discharge hopefully in 1-2 days. Quality VTE Deep Vein Thrombosis/Pulmonary Embolism Present on Admission: No
[2020-08-29] MEDS: OXYCODONE IR 10 MG TABLET 20 MG PO (21:11)
[2020-08-29 21:28] VITALS: PULSE 79; RESP 18; O2SAT 98
[2020-08-30] VITALS (8 sets, daily range): BP systolic 131–152; BP diastolic 81–95; PULSE 68–93; RESP 12–20; TEMP 36.4–36.9; O2SAT 89–100
[2020-08-30] MEDS: ONDANSETRON 4 MG/2 ML INJ IV ×2 (00:30→08:34)
[2020-08-30] MEDS: diazePAM 5 MG TABLET PO ×4 (01:07→22:25)
[2020-08-30] MEDS: OXYCODONE IR 10 MG TABLET 20 MG PO ×2 (02:09→05:05)
[2020-08-30 05:12] LABS: Hemoglobin 14.3 g/dL (13.5-17.5)
--- NOTE | 2020-08-30 05:43 | PC.NURSE ---
Patient complains of lower back pain and spasms throughout the NOC shift. States pain is 8-10/10 on the numeric pain scale while yelling out for a nurse and pacing the room with a front wheel walker. Oxycodone 20mg and Valium 5mg administered according to the MAR along with repositioning and warm blankets for comfort. Within an hour of medication administration the patient is drowsy, slurring words and falling asleep in the chair.
--- NOTE | 2020-08-30 08:45 | CM.DANOTE ---
Addendum entered by Rena Blue LPN 08/30/20 15:44: Spoke with Dr. Atkinson today. He is ordering HH services/RN/PT/OT/WANT AD RECEIVER in the hope that this will help pt stay at home safely when he is ready for d/c. HH agency list: discussed with pt. No choice given: used vendor list: [facility] confirms they do service [place]. Pain control continues to be an issue, pt is very groggy again this afternoon. He does provide name of his Advocate (he calls him his facilities coordinator) Bryant Haskins: [phone]. Spoke with Bryant on speaker in pt's room. He confirms he will help coordinate the L&I auth for HH services and is provided cell number for [facility]. Same info is now provided to [facility]. Bryant will call the [phone] confidential line to leave more information for DCP team on for tomorrow. *P: home with HH when stable for same. Pt says he may be able to have a friend stay with him for a couple of days but says he really has no help. He does not wish to consider a snf setting and says that Dr. Atkinson also tells him that would not be best. Pt does say his daughter is picking him up another walker to replace the one he broke at home during the fall. If need be, L&I would likely issue pt another walker... P Original Note: Discharge Planning/Care Management DCP: assessment. Case received, EMR reviewed, READMIT: noted. Met now with pt and introduced self and role. Pt is found sitting up in chair, damp cloth on head, emesis bag in lap. RN and OT in attendence. Pt is a 55 year old male who admitted on 08/25 for a planned spinal surgery. He identified his plan at that time as home with prn support of a friend and a house-mate and daughter to check in as need be. Pt is admitted now after difficulty with pain control and a fall, I lowered myself to the floor. My walker broke during the process. My daughter found me on the floor and called EMS. Payer: Dept of L&I. Admitted physician: Dr. Atkinson. Admission status: in review per UR CATRINA Burden P: DCP team will be following to assist with d/c issues and options. PT and OT will be working with pt. It is unclear at this time if pt now has more help lined up when he goes home from this admission. CM Discharge Assessment Start: 08/30/20 08:42 Freq: Status: Active Protocol: Document 08/30/20 08:42 ITV (Rec: 08/30/20 08:45 ITV [id number]) Discharge Planning Assessment Advance Directives? No History Provided By Patient,Medical Record Prior Living Arrangements House Household Members none Comment has a house-mate who lives in the upstairs part of the home. Pt says he can call on him if emergency Independent with ADL's Yes Is patient alert and oriented? Yes DME Already Rented / Owned FWW / Walker Comment his walker broke when he was home recovering from surgery. White-board Updated in Patient Room with Yes name and ext. # of Strike Warfare/Missile Systems Officer Review Status In Process
--- NOTE | 2020-08-30 09:10 | OT.IPRE ---
Addendum entered and electronically signed by Jaycee Stephens OT 08/30/20 11:56: edit Original Note: Past Medical History (Last Reviewed 08/29/20 @ 20:40 by Travis Atkinson MD) Anxiety Depression Headache, migraine Hemoptysis (~2014) History of ETOH abuse History of substance abuse HTN (hypertension) Panic attacks Psychosis PTSD (post-traumatic stress disorder) Sleep apnea Surgical History (Last Reviewed 08/29/20 @ 20:40 by Travis Atkinson MD) History of nasal surgery History of tonsillectomy and adenoidectomy History of vasectomy Hx of arthroscopy of shoulder Hx of hand surgery Hx of tonsillectomy Occupational Therapy Inpatient Evaluation/Re-Eval M1 PT/OT-IP Prior Functional Status Start: 08/30/20 11:08 Freq: NEEDED Status: Active Protocol: Document 08/30/20 08:22 [facility] (Rec: 08/30/20 11:44 [facility] [id number]) Medical Review Prior Functional Status Medical History Reviewed Yes Diet/Fluid Consistency Regular,Thin Liquids Communication Independent. Mobility and Gait Pt states was using the fww to get around after discharge from last admission on . Activities of Daily Living and IADL's Pt states able to use LB dressing equipment issued last time and able to do all dressing needs on his own. Pt states did not try to shower yet before getting admitted back to the hospital again. Prior Functional Level (Other details) Pt was discharged for L4-5 laminectomy and L5-S1 instrumented fusion on and discharged on 08/27/20. Per ER report,pt went down on his walker as the walker folded up on him. Pt was brought to [facility] and determined to admitted to [place] for better paiin control and mobility needs. Social History Household Members none Living Arrangements House Number of Floors (Floors) Two Floors Number of Stairs To Enter/Railing? 2 platform steps to enter. Home Environment Standard Height Toilet,Walk in Shower Home Equipment Front Wheel Walker,Straight Cane,Raised Toilet Seat w/ Armrests,Long Handled Sponge, Long Handled Shoe Horn,Stripper And Opa[employer] Apprentice ,Sock Aid Additional Social History Comment Pt also has an adjustable bed and recliner at home. M2 OT-IP Current Condition Start: 08/30/20 11:08 Freq: Status: Active Protocol: Document 08/30/20 08:22 [facility] (Rec: 08/30/20 11:44 [facility] [id number]) Occupational Therapy Current Condition Current Condition Evaluation Date 08/30/20 Treatment Diagnosis S/p L4-S1 laminectomy and L5 - S1 instrumented fusion on Diagnosis Onset Date 08/25/20 Post Operative Precautions Lumbar Precautions Log Roll,No Twisting,Limit Bending,Lifting Restriction of 10 lbs,Gait Belt above Incisional Area M3 OT- IP Subjective and Pain Start: 08/30/20 11:08 Freq: Status: Active Protocol: Document 08/30/20 08:22 [facility] (Rec: 08/30/20 11:44 [facility] [id number]) OT- Subjective Occupational Therapy Visit Type Type Initial Evaluation Visit Start Time 08:22 Visit Stop Time 09:10 Total Visit Minutes 48 Occupational Therapy Visit Comments Patient Comments Pt sitting up in the recliner and agreed to do OT eval. Patient/Caregiver Goals To go home after getting better pain control. OT Pain Assessment Pain When Pain Assessed At Rest Pain Present Pain Present Pain Reported Location low back Intensity 8 Scale Used Numeric (0 - 10) M4 OT- IP ADL's Start: 08/30/20 11:08 Freq: Status: Active Protocol: Document 08/30/20 08:22 [facility] (Rec: 08/30/20 11:44 [facility] [id number]) OT MIY-Ieqt-[place] General Evaluation Self-Feeding Ability Independent OT ADL-Grooming General Evaluation Grooming Ability Standby Assistance Areas Needing Assistance Retrieving/Set-up of Grooming Items Comments OT Grooming Comments Pt able to wash his face and hands after set-up of wash cloth while seated. OT ADL-Oral Care Comments Oral Care Comments NOt performed. OT ADL-Dressing Comments OT Dressing Comments NOt perfromed, pt had all LB dressing equipment issued to him from prior admission on . OT ADL-Toileting General Evaluation Toileting Ability Minimal Assistance Areas Needing Assistance Manage Clothing Comments OT Toileting Comments CGA while standing with FWW for balance and assist to hold the gown out on the way as pt using the urinal while standing. OT ADL-Bathing Comments OT Bathing Comments Not performed. If was suggested if pt going home to get a shower chair for showering and have someone present to assist as needed. M5 OT- IP IADL's Start: 08/30/20 11:08 Freq: Status: Active Protocol: Document 08/30/20 08:22 [facility] (Rec: 08/30/20 11:44 [facility] [id number]) OT-Instrumental Activities of Daily Living Home Safety Awareness Home Safety Comments Pt a little groggy and whoozy and at this time would best to have someone assist pt for medication, finances, and IADL needs. Driving Driving Caregiver Provides Assist M6 OT- IP Functional Cognition Start: 08/30/20 11:08 Freq: Status: Active Protocol: Document 08/30/20 08:22 [facility] (Rec: 08/30/20 11:44 [facility] [id number]) Cognitive Factors Limiting Selfcare Function Cognitive Ability Level of Alertness Alert,Drowsy Patient Orientation Name,Place,Situation Attention Span Ability Capable of Focused Attention, Capable of Sustained Attention Ability to Follow Commands Able to Follow One Step Commands Safety Awareness Decreased Ability to Apply Precautions,Underestimates Need for Assistance Problem Solving Ability Needs Assist to Identify Solutions Cognitive Comments Cognitive Assessment Comments Pt able to recall all back precautions with increased time, however did not remember how to do his log rolling. Pt a bit drowsy and needing step by step commands for safety. Pt wanting to pull up on the FWW versus pushing up from the recliner to stand. Emphasized to pt best not to grab the front of the walker as possible to accidentally press the release buttons of the FWW so the walker would fold and fail on him. OT- Vision and Hearing OT- Hearing Assessment OT- Hearing Assessment WFL OT- Vision Assessment Visual Acuity Glasses All The Time Visual Attentiveness WFL Occular Pursuits WFL Visual Convergence WFL Visual Cantu WFL M7 OT- IP Mobility and Balance Start: 08/30/20 11:08 Freq: Status: Active Protocol: Document 08/30/20 08:22 [facility] (Rec: 08/30/20 11:44 [facility] [id number]) OT- Bed Mobility Assessment Sit to Supine Sit to Supine Assist Minimal Assistance OT-Transfer Assessment Sit to and From Stand Sit to and from Stand Minimal Assistance Transfers Transfer Ability Contact Guard Assistance Technique Transfer Destination Bed,Chair Transfer Technique Stand Step Pivot Devices Transfer Assistive Devices Gait Belt,Front Wheeled Walker Comments Mobility Comments DEENA to stand and cues to push up from the recliner versus pull on his FWW. CGA to transfer to the bed. Initially when coming to see pt , pt feeling dizzy and BP taken on the recliner 51/, nursing notified and reclined pt back. Nursing able to given pt nausea medication and bp 138/95 and after transfer to the bed 147/92. OT- Gait Assessment Comments Gait Ability Comments Just transfer at this time. OT- Balance Assessment Sitting Balance and Reactions Static Sitting Balance Ability Normal Dynamic Sitting Balance Ability Good Standing Balance and Reactions Static Standing Balance Ability Fair M8 OT- IP Objective Assessments Start: 08/30/20 11:08 Freq: Status: Active Protocol: Document 08/30/20 08:22 [facility] (Rec: 08/30/20 11:44 [facility] [id number]) OT Strength Comments Strength Comments Grossly wfl OT-Muscle Tone Assessment Muscle Tone WNL Yes M9 OT- IP Assessment and Plan Start: 08/30/20 11:08 Freq: Status: Active Protocol: Document 08/30/20 08:22 [facility] (Rec: 08/30/20 11:44 [facility] [id number]) OT Summary Assessment and Plan Potential Rehabilitation Potential Good Analytic Complexity at Evaluation Low Summary OT Impairments Pain,Strength,Balance, Functional Cognition, Functional Mobility,Grooming, Dressing,Toileting,Bathing, Toilet Transfers,Shower Transfers,Activity Tolerance Progress Towards Goals Slow Progress due to Pain Assessment Summary Pt low complexity and here due to poor pain control after L4-5 laminectomy and L5-S1 instrumented fusion on and discharged on 08/27/20 and readmitted on 08/29/20. Pt 's main barriers are pain, decreased safety awareness, and now needing one person assist for mobility and adl needs. Prior pt was suppose to have a friend stay to assist him, but ended up on his own. Therefore suggest pt to go home with assist and home health. Goals Grooming Goal Independent Dressing Goal Independent Toileting Goal Independent Bathing Goal Independent Toilet Transfer Goal Independent Shower Transfer Goal Independent Patient/Caregiver Education Goal Demonstrate Post-Op Precautions,Caregiver Independent Assisting Patient Days to Meet Goals 5 Frequency of Treatment Frequency Of Treatment Once a Day Treatment Plan OT Treatment Plan ADL Training,Functional Cognition Training,Functional Mobility,Patient/Family Education,Discharge Planning Discharge Recommendations OT Discharge Recommendations Home with Assistance,Home Health Home Equipment Needs Shower chair, bed rail, fww if his is not broken Transportation Needs at Discharge Private Vehicle
[2020-08-30] MEDS: DOCUSATE 100 MG CAPSULE PO ×2 (09:33→22:25)
[2020-08-30] MEDS: CELECOXIB 200 MG CAPSULE PO ×2 (09:33→22:26)
--- NOTE | 2020-08-30 10:39 | PT.IIE ---
Surgical History (Last Reviewed 08/29/20 @ 20:40 by Travis Atkinson MD) History of nasal surgery History of tonsillectomy and adenoidectomy History of vasectomy Hx of arthroscopy of shoulder Hx of hand surgery Hx of tonsillectomy Medical History (Last Reviewed 08/29/20 @ 20:40 by Travis Atkinson MD) Anxiety Depression Headache, migraine Hemoptysis (~2014) History of ETOH abuse History of substance abuse HTN (hypertension) Panic attacks Psychosis PTSD (post-traumatic stress disorder) Sleep apnea Physical Therapy Inpatient Evaluation/Re-Eval M1 PT/OT-IP Prior Functional Status Start: 08/29/20 13:29 Freq: NEEDED Status: Active Protocol: Document 08/30/20 10:39 AB (Rec: 08/30/20 11:54 AB [id number]) Medical Review Prior Functional Status Communication able to make needs known Mobility and Gait pt s/p back surgery 08/25/20 and d/c'd home 08/27/20. pt re-admitted 08/29/20. Prior to 08/25 back surgery, pt is independent with all mobilities and ambulation without AD. upon d/c 08/27/20 , pt has been using FWW at home. Prior Functional Level (Other details) Pt was evaluated 08/26/20 for PT after 08/25/20 back surgery . pt. d/c'd home 08/27/20. during last hospitalization, pt stated that his daughter can assist him and also a friend can stay with him for 1 -2 days. upon inquiry today, pt stated that, that did not happen and his friend was not able to assist him but will be able to this time around. Pt stated that his FWW broke and fell at home but got a new one again. Social History Household Members none Living Arrangements House Number of Floors (Floors) Two Floors Number of Stairs To Enter/Railing? pt stays on main level of the house: has 2 platform steps to enter Home Environment Standard Height Toilet,Walk in Shower Home Equipment Front Wheel Walker,Straight Cane,Raised Toilet Seat w/ Armrests M1 PT/OT-IP Prior Functional Status Start: 08/30/20 11:08 Freq: NEEDED Status: Active Protocol: Document 08/30/20 10:39 AB (Rec: 08/30/20 11:54 AB [id number]) Medical Review Prior Functional Status Communication able to make needs known Mobility and Gait pt s/p back surgery 08/25/20 and d/c'd home 08/27/20. pt re-admitted 08/29/20. Prior to 08/25 back surgery, pt is independent with all mobilities and ambulation without AD. upon d/c 08/27/20 , pt has been using FWW at home. Prior Functional Level (Other details) Pt was evaluated 08/26/20 for PT after 08/25/20 back surgery . pt. d/c'd home 08/27/20. during last hospitalization, pt stated that his daughter can assist him and also a friend can stay with him for 1 -2 days. upon inquiry today, pt stated that, that did not happen and his friend was not able to assist him but will be able to this time around. Pt stated that his FWW broke and fell at home but got a new one again. Social History Household Members none Living Arrangements House Number of Floors (Floors) Two Floors Number of Stairs To Enter/Railing? pt stays on main level of the house: has 2 platform steps to enter Home Environment Standard Height Toilet,Walk in Shower Home Equipment Front Wheel Walker,Straight Cane,Raised Toilet Seat w/ Armrests M2 PT-IP Current Condition Start: 08/29/20 13:29 Freq: NEEDED Status: Active Protocol: Document 08/30/20 10:39 AB (Rec: 08/30/20 11:54 [id number]) Physical Therapy Current Condition Current Condition Evaluation Date 08/30/20 Treatment Diagnosis back pain s/p L5S1 fusion; difficulty in walking Onset Date 08/29/20 Precautions Lumbar Precautions Log Roll,No Twisting,Limit Bending,Lifting Restriction of 10 lbs,Gait Belt above Incisional Area M3 PT-IP Subjective Start: 08/29/20 13:29 Freq: NEEDED Status: Active Protocol: Document 08/30/20 10:39 AB (Rec: 08/30/20 11:54 AB [id number]) Subjective Physical Therapy Visit Type Type Initial Evaluation Visit Start Time 10:39 Visit Stop Time 10:57 Total Visit Minutes 18 Number of TECHNICIAN BIOLOGICAL HE[employer] Visits 0 Physical Therapy Visit Comments Patient Comments pt c/o nausea Therapy Pain Assessment Pain When Pain Assessed At Rest Pain Present Pain Present Pain Reported Location low back Scale Used pain scale not stated Pain Management Techniques Distraction,Modification of Treatment,Re-positioning, Timing of Activity with Medications M4 PT-IP Mobility and Gait Start: 08/29/20 13:29 Freq: NEEDED Status: Active Protocol: Document 08/30/20 10:39 AB (Rec: 08/30/20 11:54 [email or web address]) PT-Bed Mobility Assessment Sit to Supine Sit to Supine Standby Assistance,Bedrails PT-Transfer Assessment Sit to and From Stand Sit to and from Stand Contact Guard Assistance,1 Person Assistance,Use of Upper Extremities Equipment Transfer Assistive Device Gait Belt,Front Wheeled Walker Orthotic/Prosthetic Devices or Brace: No Transfers Transfer Destination Bed Transfer Technique ambulated using FWW Transfer Ability Level of Assist Contact Guard Assistance,1 Person Assistance,Use of Upper Extremities Comments Mobility Comments pt is drowsy and c/o nausea. pt sitting on chair. BP checked: 154/103 and checked again to confirm: 164/102. informed nurse. assisted pt back to bed. ambulated using FWW ~ 20 ft to bed CGA and completed sit to supine SBA. pt preferred to be on his side and assisted in positioning. BP in supine: 180/95. Left pt with nurse. call light and table placed within reach. Gait Assessment Gait Gait Assistance Required: Contact Guard Assist Distance (Feet) 20 Able to Maintain Weight Bearing Status Yes During Gait Assistive Devices Assistive Device Gait Belt,Front Wheeled Walker Orthotic/Prosthetic Devices or Brace: No Gait Deviations General Gait Pattern Antalgic,Decreased Stride Length,Decreased Feet Clearance,Flexed Trunk,Step-to Gait Factors Limiting Gait Function Factors Limiting Gait Function Decreased Activity Tolerance, Decreased Strength,Difficulty Following Directions,Limited Range of Motion,Pain,Poor Balance,Poor Safety Awareness Comments Gait Comments pt with increase UE use of FWW during ambulation and with increase forward trunk lean on FWW PT-Balance Assessment Sitting Balance and Reactions Static Sitting Balance Ability Good Dynamic Sitting Balance Ability Good Standing Balance and Reactions Static Standing Balance Ability Fair Dynamic Standing Balance Ability Fair Device Used FWW M5 PT-IP Objective Assessments Start: 08/29/20 13:29 Freq: NEEDED Status: Active Protocol: Document 08/30/20 10:39 AB (Rec: 08/30/20 11:54 AB [id number]) Orientation Orientation/Cognition Level of Alertness Alert Orientation Name,Place,Situation Language Function Ability No Deficits Noted Safety Awareness Decreased Safety Awareness Memory Description No Deficits Noted Gross Range of Motion Lower Extremity ROM Assessment Within Functional Limits Strength Comments Strength Comments RLE: 4/5 LLE: 4-/5 Sensation Assessment Sensation Gross Sensation WNL Muscle Tone Muscle Tone WNL Yes M6 PT-IP Treatment Start: 08/29/20 13:29 Freq: NEEDED Status: Active Protocol: Document 08/30/20 10:39 AB (Rec: 08/30/20 11:54 AB [id number]) Physical Therapy Treatment Education Education Provided Precautions,Safety M7 PT-IP Assessment and Plan Start: 08/29/20 13:29 Freq: NEEDED Status: Active Protocol: Document 08/30/20 10:39 AB (Rec: 08/30/20 11:54 AB [id number]) PT Summary Assessment and Plan Potential Rehabilitation Potential Fair Status of Condition at Evaluation Evolving Summary Impairments Pain,ROM,Strength,Balance, Coordination,Sensation,Tone, Cognition,Bed Mobility, Transfers,Gait,Activity Tolerance Assessment Summary pt requiring CGA with mobility and limited in activity today due to increase BP. nurse is aware. Pt does not have a solid plan for assistance at home. stated that his friend will be able to assist him but is not definite. d/c plan depending on progress, pain control and mobility assistance. will need further assessment. will need homehealth services if pt goes home. Goals Bed Mobility Goal Independent Transfer Goal Independent,Front Wheeled Walker Gait Goal Independent,Front Wheel Walker Gait Distance 150 Other Goals up/down 2 platform steps SBA Days to Meet Goals 5 Frequency of Treatment Frequency Of Treatment Once a Day Treatment Plan Physical Therapy Treatment Plan Bed Mobility Training,Transfer Training,Gait Training, Therapeutic Exercise,Balance Retraining,Post Op Education, Discharge Planning,Hot or Cold Pack,Neuromuscular Re-ed, Coordination Retraining,Manual Therapy Recommendations To Nursing Amount of Assist Needed 1 Person Assist Discharge Recommendations PT Discharge Recommendations Home with Assistance,Home Health,SNF Rehab Other Discharge Recommendations depending on progress: home with assist/HHPT vs SNF Transportation Needs at Discharge Private Vehicle,Wheelchair/ Cabulance
[2020-08-30] MEDS: NICOTINE 7 MG PATCH TOP (10:52)
[2020-08-30] MEDS: OXYCODONE IR 10 MG TABLET PO (10:52)
--- NOTE | 2020-08-30 13:07 | PM.PNPO.1 ---
Subjective Subjective Date Patient Seen: 08/30/20 Time Patient Seen: 13:07 Interval history: He is still working on pain control with about a 7 to 8/10 right now. 20 mg of oxycodone made him nauseated but 10 was not enough and 15 seems to be helping. He needed a fair amount of assistance with physical therapy this morning and is not independent. Exam Vital Signs (past 8 hours): - 08/30/20 08:40 08/30/20 12:43 Temperature 98.1 F Pulse Rate 68 91 H Respiratory Rate 15 Blood Pressure 147/92 H 152/91 H Pulse Oximetry 94 Oxygen Delivery Method CPAP Oxygen Flow Rate 0 Const Orientation: alert and oriented x3 Back/Spine/Pelvis Other: CDI. 5/5 motor both lower extremities. Objective Labs Result Diagrams: 08/30/20 05:00 Labs: Laboratory Results - last 24 hr 08/29/20 08/30/20 13:50 05:00 Hgb 14.3 Hct 41.0 COVID-19 PCR Negative PFSH Medical History Anxiety Depression Headache, migraine Hemoptysis (~2014) History of ETOH abuse History of substance abuse HTN (hypertension) Panic attacks Psychosis PTSD (post-traumatic stress disorder) Sleep apnea Surgical History History of nasal surgery History of tonsillectomy and adenoidectomy History of vasectomy Hx of arthroscopy of shoulder Hx of hand surgery Hx of tonsillectomy Family History Mother Heart attack Father Heart attack Stroke Social History household members: none Smoking Status: Current every day smoker alcohol intake: former Assessment & Plan Post-op Postoperative Procedures: Postop day 5. After laminectomy and fusion, now readmitted to the hospital for mobility and pain control Postoperative day: 5 Postoperative status: marginal pain control Postoperative plan narrative: I am going to try switching him to Dilaudid and see if that helps better with the pain control without as much nausea. Continue mobilizing with therapy. We are working on home health with possible discharge tomorrow. Quality VTE Deep Vein Thrombosis/Pulmonary Embolism Present on Admission: No
[2020-08-30] MEDS: HYDROMORPHONE 2 MG TABLET PO ×3 (14:54→22:26)
[2020-08-30] MEDS: SENNOSIDES 8.6 MG TABLET 17.2 MG PO (22:25)
[2020-08-31 00:30] VITALS: BP 146/95; PULSE 85; RESP 18; TEMP 36.4; O2SAT 93
[2020-08-31] MEDS: HYDROMORPHONE 2 MG TABLET PO ×3 (01:16→08:22)
[2020-08-31] MEDS: OXYCODONE IR 10 MG TABLET PO (02:24)
[2020-08-31] MEDS: diazePAM 5 MG TABLET PO ×2 (04:11→09:58)
--- NOTE | 2020-08-31 07:57 | CM.DPC ---
Addendum entered by Rosa Santos R.N. 08/31/20 10:38: Jaciel from [facility] called back. Stated that he called [employer], stated that Vanessa Goodsonaaliyah does not do authorizations, she processes claims after approval. He indicated that he was directed to occupational nurse registered nurse hh case manager, one is on vacation, but was given another extension of the nurse covering. He stated that he is hopeful that he will here back soon, uncertain if it will be today. Let him know that patient is discharging home today. Addendum entered by Rosa Santos R.N. 08/31/20 10:16: Left a message with Bryant Haskins, from [employer], that patient is being discharged home today, and have a message out to Vanessa Underwood from [employer] claims for authorization for home health. Addendum entered by Rosa Santos R.N. 08/31/20 10:06: Spoke to Jaciel at [facility], he is also working on authorization from [employer]. Stated that they can't work with him until it is authorized. Updated Sherif Chahal, [facility] PAC, on discharge plan for [facility], pending authorization. He is discharging patient today. Spoke to patient in his room. He was sitting up in his chair, he is alert and oriented, pleasant. P.T. is working with him. He stated, he does have some help at home, just not all the time. Home Health will enable safety assessment in the home for patient, as well. Will go ahead and fax discharge summary to [facility] as well. Original Note: DCP Cont: Received a message from Bryant Haskins, regarding [employer] authorization for home health. In the message, he encouraged case management to call Vanessa Underwood, in claims at [employer]. Her phone number is [phone]. Attempted to call, but office was not yet opened. Asking Adela, retail administrative assistant to also attempt to call, to enable getting authorization for home health. Left Jaciel at [facility] a message with information as well. P: DCP to continue to follow, and work on getting authorization for home health. Rosa Santos, RN/Can Filler
[2020-08-31 08:00] VITALS: BP 150/108; PULSE 88; RESP 16; TEMP 36.9; O2SAT 91
[2020-08-31] MEDS: DOCUSATE 100 MG CAPSULE PO (08:23)
[2020-08-31] MEDS: NICOTINE 7 MG PATCH TOP (08:23)
[2020-08-31] MEDS: CELECOXIB 200 MG CAPSULE PO (08:23)
--- NOTE | 2020-08-31 09:31 | P.DS_ITS ---
History of Present Illness History of Present Illness Date Patient Seen: 08/31/20 Time Patient Seen: 09:31 Chief complaint: Pain control Narrative: Pain 05/16. Patient states his pain is controlled well enough at this point to go home. Patient has a friend lb pick him up in staying with him overnight. Patient's daughter will be with him the rest of the time. Patient states he feels safe to be discharged home today. 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 Hospital Course: Narrative: 55-year-old male who had a L4 through S1 laminectomy and L5-S1 instrumented fusion on 08/25/2020. He was discharged home on postoperative day 2. At that point he had good pain control and had been doing well with PT. however, he was going through his pain medication very rapidly as his discharge prescription was only filled with 5 mg tablets instead of 10 mg tablets. He had a fall last night when his walker broke and he went down. His family had to call EMS and he was brought to the [facility] early this morning. After discussion with his family, it is felt that he needed to have better pain control and mobility. Although originally he had plan to live with family, he had actually gone back home to his 1 bedroom apartment. He had no one helping him. He was transferred from [facility] back up to of the hospital today and we have been working on pain control since. At this point his pain is under much better control but he has been requiring IV Dilaudid. He is getting around on his walker decently. Patient's pain meds have been adjusted throughout his readmission. Pain control overall improved. Patient has progressed with physical therapy and occupational therapy. Patient is now standby assist. Patient states he has a friend at home that will be assisting him until his daughter is available to assist him. Patient is requesting to be discharged home today and feels that he will be able to manage now they his pain control has improved. Status at Discharge Cognitive/behavioral status at discharge: at baseline, oriented Functional status at discharge: uses cane/walker Overall status at discharge: patient is progressing back to baseline Time Spent with Patient Time spent: Less than 30 minutes Exam Vital Signs (past 8 hours): - 08/31/20 08:00 Temperature 98.5 F Pulse Rate 88 Respiratory Rate 16 Blood Pressure 150/108 H Pulse Oximetry 91 Oxygen Delivery Method Room Air Oxygen Flow Rate 0 Narrative Exam Narrative: 55-year-old male sitting in bedside chair in no apparent distress. Lumbar dressing is clean, dry and intact. Neurovascular status is intact to the bilateral lower extremities. Objective Labs Result Diagrams: 08/30/20 05:00 PFS Medical History Anxiety Depression Headache, migraine Hemoptysis (~2014) History of ETOH abuse History of substance abuse HTN (hypertension) Panic attacks Psychosis PTSD (post-traumatic stress disorder) Sleep apnea Surgical History History of nasal surgery History of tonsillectomy and adenoidectomy History of vasectomy Hx of arthroscopy of shoulder Hx of hand surgery Hx of tonsillectomy Family History Mother Heart attack Father Heart attack Stroke Social History household members: none Smoking Status: Current every day smoker alcohol intake: former Discharge Assessment & Plan Assessment and Plan Assessment: Overall pain control improving. Plan of Treatment: Patient will be discharged home today. He will still require some assistance and will be discharged with home health services. Recommend home health services with OT, PT for review of home and safety evaluation. Patient does have unreliable help at home with his friend and daughter so assistance with home health services is highly recommended. Discharge Plan Discharge Plan Patient Disposition: Home Discharge orders & Medications Prescriptions: New sennosides [senna] 8.6 mg Tablet 17.2 mg PO BEDTIME Qty: 20 RF: 0 hydromorphone 2 mg Tablet 2 mg PO Q3H PRN (Reason: Pain, Severe (7-10)) Qty: 40 RF: 0 diazepam 5 mg Tablet 5 mg PO Q6HR PRN (Reason: Spasms) Qty: 30 RF: 0 oxycodone 10 mg Tablet 10 mg PO Q3HR PRN (Reason: Pain, Severe (7-10)) Qty: 60 RF: 0 Continued Flovent HFA 220 mcg/actuation Hfa Aerosol Inhaler 1 puff INHALATION DAILY RF: 0 albuterol sulfate 90 mcg/actuation Hfa Aerosol Inhaler 1 inh INHALATION QD-BID PRN (Reason: Shortness Of Breath) RF: 0 losartan 100 mg Tablet 100 mg PO DAILY RF: 0 diazepam 5 mg Tablet 5 mg PO Q6HR PRN (Reason: Spasms) Qty: 10 RF: 0 celecoxib [Celebrex] 200 mg Capsule 200 mg PO BID PRN (Reason: pain) Qty: 60 RF: 0 docusate sodium [DOK] 100 mg Capsule 100 mg PO BID PRN (Reason: constipation) Qty: 30 RF: 0 Discontinued oxycodone 5 mg tablet 5 mg PO Q3H PRN (Reason: pain) Qty: 20 RF: 0 Follow up/Referrals: Travis Atkinson MD [Physician] - (2 week post op appt.) Diet/Activity/Treatments Activity: Limited bending, twisting, 10 lb lifting. Cold/Heat Therapy: ice to low back as needed Skin/Wound/Dressing Care Dressing: May shower over dressing for the 1st 5 days. You may remove the dressing and shower over the incision. Replace this with a clean dressing when done. Visit Report/Discharge Packet Instructions: DI for Prescription Opioid Use Discharge Data Attending Provider: Travis Atkinson Quality VTE Deep Vein Thrombosis/Pulmonary Embolism Present on Admission: No
--- NOTE | 2020-08-31 09:49 | PT.IPTN ---
Addendum entered and electronically signed by Barbara Oneill PT 08/31/20 13:52: This is to certify that I reviewed this documentation and is involved with this pt's care. Original Note: Physical Therapy Treatment Note M2 PT-IP Current Condition Start: 08/29/20 13:29 Freq: NEEDED Status: Discharge Protocol: Document 08/30/20 10:39 AB (Rec: 08/30/20 11:54 AB [id number]) Physical Therapy Current Condition Current Condition Evaluation Date 08/30/20 Treatment Diagnosis back pain s/p L5S1 fusion; difficulty in walking Onset Date 08/29/20 Precautions Lumbar Precautions Log Roll,No Twisting,Limit Bending,Lifting Restriction of 10 lbs,Gait Belt above Incisional Area M3 PT-IP Subjective Start: 08/29/20 13:29 Freq: NEEDED Status: Discharge Protocol: Document 08/31/20 09:49 (Rec: 08/31/20 12:22 [id number]) Subjective Physical Therapy Visit Type Type Treatment Note Visit Start Time 09:49 Visit Stop Time 10:20 Total Visit Minutes 31 Notes REJI Awad led tx under direct supervision of Barbara PT for the entire session. Number of COUNTER CLERK Visits 1 Physical Therapy Visit Comments Patient Comments Pt states he is doing better. Therapy Pain Assessment Pain When Pain Assessed At Rest Pain Present Pain Present Pain Reported Location low back Intensity 7 Scale Used Numeric (0 - 10) Pain Behaviors Wincing Pain Management Techniques Distraction,Modification of Treatment,Re-positioning, Timing of Activity with Medications M4 PT-IP Mobility and Gait Start: 08/29/20 13:29 Freq: NEEDED Status: Discharge Protocol: Document 08/31/20 09:49 (Rec: 08/31/20 12:22 [id number]) PT-Transfer Assessment Sit to and From Stand Sit to and from Stand Standby Assistance,1 Person Assistance,Use of Upper Extremities Equipment Transfer Assistive Device Gait Belt,Front Wheeled Walker Orthotic/Prosthetic Devices or Brace: No Transfers Transfer Destination Chair Transfer Technique ambulated w/ FWW Transfer Ability Level of Assist Contact Guard Assistance,1 Person Assistance,Use of Upper Extremities Comments Mobility Comments Pt in chair upon arrival. Pt seems impulsive throughout entire session. Reviewed back precautions. Took pts BP in sittin/97. Pt performed sit-stand SBA w/ cues to use arm rest to stand. Pt amb ~[address] CGA w/ FWW. Pt tends to stand w/ flexed posture and knees/hips slightly bent. D/t pt posture pt cued frequently to not let knees flex and to squeeze glutes to stand up tall while amb. Pt relied heavily on UE strength to amb to the point his arms became so fatigued he needed to rest. Pt required a w/c to sit down and rest. Pt took ~2 min rest break. Pt amb ~15' and required another rest break, while still having knees flexing despite repeatedly cuing him. Pt rested ~2min in w/c. PT educated pt on safety, assistance at home and pt assured PT that friend will be there to stay with him and the need for caregiver training d/t pts decreased mobility. Pt agreed to have his caregiver come in for the afternoon for training. PT talked to pt about setting up chairs when ambulating so that he can take breaks as needed. Pt understood and agreed. Pt performed 2 platform steps w/ FWW and CGA x2. For safety SPTA and PT placed foot in front of back legs of walker as pt descended platform step. Pt was ready to walk back to room, requiring no rest breaks this time, but still demonstrating flexed knees and using UE for support despite cues. Pt stand on EOC CGA. Pt told SPTA and PT that the way his body is built does not allow him to follow the cues that were given. Pt states unable to stand upright d/t increase in pain. Pt left in room w/ call light, chair alarm and all needs within reach. Gait Assessment Gait Gait Assistance Required: Contact Guard Assist,1 Person Assist Distance (Feet) 25 Able to Maintain Weight Bearing Status Yes During Gait Assistive Devices Assistive Device Gait Belt,Front Wheeled Walker Orthotic/Prosthetic Devices or Brace: No Gait Deviations General Gait Pattern Antalgic,Decreased Stride Length,Decreased Feet Clearance,Flexed Trunk Factors Limiting Gait Function Factors Limiting Gait Function Decreased Activity Tolerance, Decreased Strength,Difficulty Following Directions,Limited Range of Motion,Pain,Poor Balance,Poor Safety Awareness Comments Gait Comments Pt relies heavily on UE to support himself during ambulation. Pts legs were not able to support him well causing his knees to flex. Pt provided w/ repeated cues to correct deviation. Stair Climbing Assessment Evaluation Level of Assist On Stairs Contact Guard Assistance,1 Person Assistance Devices Stair Climbing Assistive Devices Front Wheel Walker Technique/Endurance Stair Climbing Direction Ascend and Descend Stair Climbing Technique Step Over Step Number of Steps Climbed 2 Stair Climbing Set # Repetitions (reps) 1 Comments Stair Climbing Comments See mobility section. M5 PT-IP Objective Assessments Start: 08/29/20 13:29 Freq: NEEDED Status: Discharge Protocol: Document 08/30/20 10:39 AB (Rec: 08/30/20 11:54 AB [id number]) Orientation Orientation/Cognition Level of Alertness Alert Orientation Name,Place,Situation Language Function Ability No Deficits Noted Safety Awareness Decreased Safety Awareness Memory Description No Deficits Noted Gross Range of Motion Lower Extremity ROM Assessment Within Functional Limits Strength Comments Strength Comments RLE: 4/5 LLE: 4-/5 Sensation Assessment Sensation Gross Sensation WNL Muscle Tone Muscle Tone WNL Yes M6 PT-IP Treatment Start: 08/29/20 13:29 Freq: NEEDED Status: Discharge Protocol: Document 08/30/20 10:39 AB (Rec: 08/30/20 11:54 AB [id number]) Physical Therapy Treatment Education Education Provided Precautions,Safety M7 PT-IP Assessment and Plan Start: 08/29/20 13:29 Freq: NEEDED Status: Discharge Protocol: Document 08/31/20 09:49 (Rec: 08/31/20 12:22 [id number]) PT Summary Assessment and Plan Potential Rehabilitation Potential Fair Summary Impairments Pain,ROM,Strength,Balance, Coordination,Sensation,Tone, Cognition,Bed Mobility, Transfers,Gait,Activity Tolerance Progress Towards Goals Progressing Toward Goals,Slow Progress due to Pain,Slow Progress due to Medical Issues ,Slow Progress due to Activity Tolerance Assessment Summary Pt required CGA w/ mobility and max cues for amb. Pt knees flex causing him to rely heavily on UE strength. Pt had to rest twice in order to amb ~40' PT had conversation w/ him about assistance at home and the need for caregiver training for safe discharge. Pt agreed to caregiver training for the next PT session. Goals Bed Mobility Goal Independent Transfer Goal Independent,Front Wheeled Walker Gait Goal Independent,Front Wheel Walker Gait Distance 150 Other Goals up/down 2 platform steps SBA Days to Meet Goals 5 Frequency of Treatment Frequency Of Treatment Once a Day Treatment Plan Physical Therapy Treatment Plan Bed Mobility Training,Transfer Training,Gait Training, Therapeutic Exercise,Balance Retraining,Post Op Education, Discharge Planning,Hot or Cold Pack,Neuromuscular Re-ed, Coordination Retraining,Manual Therapy Other Recommendations and Next Treatment Increase amb distance, Focus platform step and caregiver training Recommendations To Nursing Amount of Assist Needed 1 Person Assist Discharge Recommendations PT Discharge Recommendations Home with Assistance,Home Health,SNF Rehab Other Discharge Recommendations depending on progress: home with assist/HHPT vs SNF Transportation Needs at Discharge Private Vehicle,Wheelchair/ Cabulance
--- NOTE | 2020-08-31 09:50 | OT.IP.TRT ---
Occupational Therapy Treatment Note M2 OT-IP Current Condition Start: 08/30/20 11:08 Freq: Status: Active Protocol: Document 08/30/20 08:22 [facility] (Rec: 08/30/20 11:44 [facility] [id number]) Occupational Therapy Current Condition Current Condition Evaluation Date 08/30/20 Treatment Diagnosis S/p L4-S1 laminectomy and L5 - S1 instrumented fusion on Diagnosis Onset Date 08/25/20 Post Operative Precautions Lumbar Precautions Log Roll,No Twisting,Limit Bending,Lifting Restriction of 10 lbs,Gait Belt above Incisional Area M3 OT- IP Subjective and Pain Start: 08/30/20 11:08 Freq: Status: Active Protocol: Document 08/31/20 11:17 [facility] (Rec: 08/31/20 11:35 [facility] [id number]) OT- Subjective Occupational Therapy Visit Type Type Treatment Note Visit Start Time 08:32 Visit Stop Time 09:50 Total Visit Minutes 68 Occupational Therapy Visit Comments Patient Comments Pt already standing in the room with FWW and wanting to shower. Patient/Caregiver Goals Pt wanting to go home. OT Pain Assessment Pain When Pain Assessed At Rest Pain Present Pain Present Pain Reported Location low back Intensity 8 Scale Used Numeric (0 - 10) M4 OT- IP ADL's Start: 08/30/20 11:08 Freq: Status: Active Protocol: Document 08/31/20 11:17 [facility] (Rec: 08/31/20 11:35 [facility] [id number]) OT [id number] Comments OT Self-Feeding Comments Not at meal time. OT ADL-Grooming Comments OT Grooming Comments Not performed. OT ADL-Oral Care Comments Oral Care Comments NOt performed. OT ADL-Dressing General Eval Upper Body Dressing Ability Standby Assistance Lower Body Dressing Ability Minimal Assistance Areas Needing Assistance Shoes Comments OT Dressing Comments Pt able to use railway switchman and sock aid to assist for LB dressing needs. Pt just needing assist to put his shoes on and to tie his shoes. OT ADL-Toileting General Evaluation Toileting Ability Standby Assistance Comments OT Toileting Comments SBA for all toileting needs. OT ADL-Bathing Bathing Type Bathing Type Shower General Evaluation Bathing Ability Standby Assistance Areas Needing Assistance Retrieving/Setting Up Items Comments OT Bathing Comments Pt needing SBA for safety, vc to stay seated while showering . VC to be careful not to twist. M5 OT- IP IADL's Start: 08/30/20 11:08 Freq: Status: Active Protocol: Document 08/30/20 08:22 [facility] (Rec: 08/30/20 11:44 [facility] [id number]) OT-Instrumental Activities of Daily Living Home Safety Awareness Home Safety Comments Media Associate little groggy and whoozy and at this time would best to have someone assist pt for medication, finances, and IADL needs. Driving Driving Caregiver Provides Assist M6 OT- IP Functional Cognition Start: 08/30/20 11:08 Freq: Status: Active Protocol: Document 08/31/20 11:17 [facility] (Rec: 08/31/20 11:35 [facility] [id number]) Cognitive Factors Limiting Selfcare Function Cognitive Ability Level of Alertness Alert Patient Orientation Name,Place,Situation Attention Span Ability Capable of Focused Attention, Capable of Sustained Attention Ability to Follow Commands Able to Follow One Step Commands Safety Awareness Decreased Ability to Apply Precautions,Underestimates Need for Assistance Problem Solving Ability Needs Assist to Identify Solutions Cognitive Comments Cognitive Assessment Comments Pt a bit forgetful, but states has history of a brain injury so prior has short term memory issues per pt. Pt is forgetful and not remembering to push up from the recliner versus grab the FWW in the front. Suggested pt to put red tape or sign on the FWW to remind him not to grab the front of the FWW to prevent his from accidentally pushing the release which would cause the FWW to fold up. M7 OT- IP Mobility and Balance Start: 08/30/20 11:08 Freq: Status: Active Protocol: Document 08/31/20 11:17 [facility] (Rec: 08/31/20 11:35 [facility] [id number]) OT-Transfer Assessment Sit to and From Stand Sit to and from Stand Standby Assistance Transfers Transfer Ability Standby Assistance Technique Transfer Destination Chair,Shower Stall,Toilet Transfer Technique Stand Step Pivot Devices Transfer Assistive Devices Gait Belt,Front Wheeled Walker Comments Mobility Comments SBA to stand , pt tend to twist and needs vc to push up from the recliner armrests. In addition pt having trouble with his transition from sitting to standing and tends to hesitate. VC to have pt hinge at his hips when coming to stand. M9 OT- IP Assessment and Plan Start: 08/30/20 11:08 Freq: Status: Active Protocol: Document 08/31/20 11:17 [facility] (Rec: 08/31/20 11:35 [facility] [id number]) OT Summary Assessment and Plan Potential Rehabilitation Potential Good Analytic Complexity at Evaluation Low Summary OT Impairments Pain,Strength,Balance, Functional Cognition, Functional Mobility,Grooming, Dressing,Toileting,Bathing, Toilet Transfers,Shower Transfers,Activity Tolerance Progress Towards Goals Progressing Toward Goals Assessment Summary Pt still having decreased safety awareness and needing cues to incorporate his back precautions for all Adl and mobility needs. Pt states will have his friend stay with him or at least drop him off at home. Pt then states to pay his friend to stay with him to help. Pt has decreased safety awareness and short term memory and would benefit from someone to stay and provide supervision and assist as needed. Pt would also benefit from home health to look at his safety in his environment as pt having decreased carryover for safety awareness for back precaution needs. Goals Dressing Goal Independent Toileting Goal Independent Bathing Goal Independent Toilet Transfer Goal Independent Shower Transfer Goal Independent Days to Meet Goals 3 Frequency of Treatment Frequency Of Treatment Once a Day Treatment Plan OT Treatment Plan ADL Training,Functional Cognition Training,Functional Mobility,Patient/Family Education,Discharge Planning Discharge Recommendations OT Discharge Recommendations Home with Assistance,Home Health Home Equipment Needs Shower chair, bed rail, fww if his is not broken Transportation Needs at Discharge Private Vehicle
--- NOTE | 2020-08-31 09:53 | PC.NURSE ---
Patient showered this morning, dressing changed to lower back. Given dilaudid 2mg and helpful with discomfort. Will give patient his valium now and right before he goes okayed 4mg of po dilaudid to be given. Patient is calm and comfortable.
[2020-08-31] MEDS: HYDROMORPHONE 4 MG TABLET PO (10:46)
--- NOTE | 2020-08-31 13:18 | PT.IPTN ---
Addendum entered and electronically signed by Barbara Oneill PT 08/31/20 13:50: This is to certify that I reviewed this documentation and is involved with this pt's care. Original Note: Physical Therapy Treatment Note M2 PT-IP Current Condition Start: 08/29/20 13:29 Freq: NEEDED Status: Discharge Protocol: Document 08/30/20 10:39 AB (Rec: 08/30/20 11:54 AB [id number]) Physical Therapy Current Condition Current Condition Evaluation Date 08/30/20 Treatment Diagnosis back pain s/p L5S1 fusion; difficulty in walking Onset Date 08/29/20 Precautions Lumbar Precautions Log Roll,No Twisting,Limit Bending,Lifting Restriction of 10 lbs,Gait Belt above Incisional Area M3 PT-IP Subjective Start: 08/29/20 13:29 Freq: NEEDED Status: Discharge Protocol: Document 08/31/20 13:16 (Rec: 08/31/20 13:17 [id number]) Subjective Physical Therapy Visit Type Type Administrative Note Notes Pt discharged before PT was able to do caregiver training. M4 PT-IP Mobility and Gait Start: 08/29/20 13:29 Freq: NEEDED Status: Discharge Protocol: Document 08/31/20 09:49 (Rec: 08/31/20 12:22 [id number]) PT-Transfer Assessment Sit to and From Stand Sit to and from Stand Standby Assistance,1 Person Assistance,Use of Upper Extremities Equipment Transfer Assistive Device Gait Belt,Front Wheeled Walker Orthotic/Prosthetic Devices or Brace: No Transfers Transfer Destination Chair Transfer Technique ambulated w/ FWW Transfer Ability Level of Assist Contact Guard Assistance,1 Person Assistance,Use of Upper Extremities Comments Mobility Comments Pt in chair upon arrival. Pt seems impulsive throughout entire session. Reviewed back precautions. Took pts BP in sittin/97. Pt performed sit-stand SBA w/ cues to use arm rest to stand. Pt amb ~25 [address] CGA w/ FWW. Pt tends to stand w/ flexed posture and knees/hips slightly bent. D/t pt posture pt cued frequently to not let knees flex and to squeeze glutes to stand up tall while amb. Pt relied heavily on UE strength to amb to the point his arms became so fatigued he needed to rest. Pt required a w/c to sit down and rest. Pt took ~2 min rest break. Pt amb ~15' and required another rest break, while still having knees flexing despite repeatedly cuing him. Pt rested ~2min in w/c. PT educated pt on safety, assistance at home and pt assured PT that friend will be there to stay with him and the need for caregiver training d/t pts decreased mobility. Pt agreed to have his caregiver come in for the afternoon for training. PT talked to pt about setting up chairs when ambulating so that he can take breaks as needed. Pt understood and agreed. Pt performed 2 platform steps w/ FWW and CGA x2. For safety SPTA and PT placed foot in front of back legs of walker as pt descended platform step. Pt was ready to walk back to room, requiring no rest breaks this time, but still demonstrating flexed knees and using UE for support despite cues. Pt stand on EOC CGA. Pt told SPTA and PT that the way his body is built does not allow him to follow the cues that were given. Pt states unable to stand upright d/t increase in pain. Pt left in room w/ call light, chair alarm and all needs within reach. Gait Assessment Gait Gait Assistance Required: Contact Guard Assist,1 Person Assist Distance (Feet) 25 Able to Maintain Weight Bearing Status Yes During Gait Assistive Devices Assistive Device Gait Belt,Front Wheeled Walker Orthotic/Prosthetic Devices or Brace: No Gait Deviations General Gait Pattern Antalgic,Decreased Stride Length,Decreased Feet Clearance,Flexed Trunk Factors Limiting Gait Function Factors Limiting Gait Function Decreased Activity Tolerance, Decreased Strength,Difficulty Following Directions,Limited Range of Motion,Pain,Poor Balance,Poor Safety Awareness Comments Gait Comments Pt relies heavily on UE to support himself during ambulation. Pts legs were not able to support him well causing his knees to flex. Pt provided w/ repeated cues to correct deviation. Stair Climbing Assessment Evaluation Level of Assist On Stairs Contact Guard Assistance,1 Person Assistance Devices Stair Climbing Assistive Devices Front Wheel Walker Technique/Endurance Stair Climbing Direction Ascend and Descend Stair Climbing Technique Step Over Step Number of Steps Climbed 2 Stair Climbing Set # Repetitions (reps) 1 Comments Stair Climbing Comments See mobility section. M5 PT-IP Objective Assessments Start: 08/29/20 13:29 Freq: NEEDED Status: Discharge Protocol: Document 08/30/20 10:39 AB (Rec: 08/30/20 11:54 AB [id number]) Orientation Orientation/Cognition Level of Alertness Alert Orientation Name,Place,Situation Language Function Ability No Deficits Noted Safety Awareness Decreased Safety Awareness Memory Description No Deficits Noted Gross Range of Motion Lower Extremity ROM Assessment Within Functional Limits Strength Comments Strength Comments RLE: 4/5 LLE: 4-/5 Sensation Assessment Sensation Gross Sensation WNL Muscle Tone Muscle Tone WNL Yes M6 PT-IP Treatment Start: 08/29/20 13:29 Freq: NEEDED Status: Discharge Protocol: Document 08/30/20 10:39 AB (Rec: 08/30/20 11:54 AB [email or web address]) Physical Therapy Treatment Education Education Provided Precautions,Safety M7 PT-IP Assessment and Plan Start: 08/29/20 13:29 Freq: NEEDED Status: Discharge Protocol: Document 08/31/20 09:49 (Rec: 08/31/20 12:22 [id number]) PT Summary Assessment and Plan Potential Rehabilitation Potential Fair Summary Impairments Pain,ROM,Strength,Balance, Coordination,Sensation,Tone, Cognition,Bed Mobility, Transfers,Gait,Activity Tolerance Progress Towards Goals Progressing Toward Goals,Slow Progress due to Pain,Slow Progress due to Medical Issues ,Slow Progress due to Activity Tolerance Assessment Summary Pt required CGA w/ mobility and max cues for amb. Pt knees flex causing him to rely heavily on UE strength. Pt had to rest twice in order to amb ~40' PT had conversation w/ him about assistance at home and the need for caregiver training for safe discharge. Pt agreed to caregiver training for the next PT session. Goals Bed Mobility Goal Independent Transfer Goal Independent,Front Wheeled Walker Gait Goal Independent,Front Wheel Walker Gait Distance 150 Other Goals up/down 2 platform steps SBA Days to Meet Goals 5 Frequency of Treatment Frequency Of Treatment Once a Day Treatment Plan Physical Therapy Treatment Plan Bed Mobility Training,Transfer Training,Gait Training, Therapeutic Exercise,Balance Retraining,Post Op Education, Discharge Planning,Hot or Cold Pack,Neuromuscular Re-ed, Coordination Retraining,Manual Therapy Other Recommendations and Next Treatment Increase amb distance, Focus platform step and caregiver training Recommendations To Nursing Amount of Assist Needed 1 Person Assist Discharge Recommendations PT Discharge Recommendations Home with Assistance,Home Health,SNF Rehab Other Discharge Recommendations depending on progress: home with assist/HHPT vs SNF Transportation Needs at Discharge Private Vehicle,Wheelchair/ Cabulance
== END 2020-08-31 11:06 | disposition home or self-care (01) ==
PROVIDERS: Admitting Provider Orthopaedic Surgery; Referring Provider Orthopaedic Surgery; Visit Provider Orthopaedic Surgery
DX: M96.1 Postlaminectomy syndrome, not elsewhere classified (principal); W01.0XXA Fall on same level from slipping, tripping and stumbling without subsequent striking against object, initial encounter; Y92.009 Unspecified place in unspecified non-institutional (private) residence as the place of occurrence of the external cause; F17.210 Nicotine dependence, cigarettes, uncomplicated; I10 Essential (primary) hypertension; G47.33 Obstructive sleep apnea (adult) (pediatric); F41.9 Anxiety disorder, unspecified; F32.9 Major depressive disorder, single episode, unspecified; Z11.59 Encounter for screening for other viral diseases
CPT/HCPCS: 36415; 85014; 85018; 87635; 94660; 94760; 97116; 97162; 97165; 97530; 97535; G0378; G0379; J1170; J2405